=== PATIENT | male | born 1950 | race Caucasian/White ===

== ENCOUNTER 2018-04-18 18:07 | Inpatient (IN) | payer MEDICARE, OTHER ==
[2018-04-18] MEDS ORDERED: Lidocaine 1% w/Epinephrine 1:100K 20 ML VIAL ONE (19:09)
[2018-04-18] MEDS ORDERED: Lidocaine 1% PF 5 ML VIAL ONE (19:27)
[2018-04-18 19:57] LABS: #Basophils 0.1 thou/uL (0.0-0.2); #Eosinphils 0.1 thou/uL (0.0-0.7); #Lymphocytes 0.9 thou/uL (1.20-3.40); #Monocytes 0.7 thou/uL (0.11-0.59); #Neutrophils 5.6 thou/uL (1.40-6.50); %Basophils 0.7 % (0.0-1.0); %Eosinophils 1.6 % (0.0-10.0); %Lymphocytes 12.4 % (21.0-51.0); %Monocytes 8.9 % (0.0-10.0); %Neutrophils 76.5 % (42.0-75.0); Hemoglobin 12.7 g/dL (14.0-18.0); Mean Corpuscular HGB CONC 32.1 g/dL (32.0-36.0); Mean Corpuscular Hemoglobin 31.5 pg (27.0-31.0); Mean Corpuscular Volume 98.1 fL (78.0-98.0); Mean Platelet Volume 7.2 fL (7.4-10.4); Platelet Count 415 thou/uL (130-400); RBC Distribution Width 11.8 % (11.5-14.5); Red Blood Cell (RBC) Count 4.03 mill/uL (4.70-6.10); White Blood Cell (WBC) Count 7.4 thou/uL (4.8-10.8)
[2018-04-18 20:18] LABS: ALT (SGPT) 21 U/L (8-55); AST (SGOT) 31 U/L (5-34); Alkaline Phosphatase 83 U/L (40-150); Anion Gap 13 mmol/L (10-20); BUN (Urea Nitrogen) 13 mg/dL (8.4-25.7); Bilirubin, Total 0.8 mg/dL (0.2-1.2); CRP (Inflammatory) 6.71 mg/dL (= or < 0.5); Calc. Creatinine Clearance 0 mL/min (70-130); Calcium 9.1 mg/dL (7.8-10.44); Carbon Dioxide 27 mmol/L (23-31); Chloride 100 mmol/L (98-107); Estimated GFR-MDRD Greater than 90; Globulin 3.6 g/dL (2.4-3.5); Glucose 81 mg/dL (80-115); Protein, Total 6.6 g/dL (5.8-8.1); Sodium 136 mmol/L (136-145)
--- NOTE | 2018-04-18 20:20 | RAD ---
LEFT KNEE RADIOGRAPHS FOUR VIEWS 04/18/18 PROVIDED CLINICAL HISTORY: Left leg pain. FINDINGS: Postoperative changes of left total knee arthroplasty are demonstrated without evidence for hardware loosening or migration. There is increased density in the expected location of the knee joint that ma y reflect particle disease. Alignment appears anatomic. Joint spaces appear preserved. No lytic or bl astic lesions are seen. IMPRESSION: No evidence for an acute osseous abnormality. POS: JESSI
--- NOTE | 2018-04-18 21:08 | ULT ---
LEFT LOWER EXTREMITY VENOUS DOPPLER 04/18/18 PROVIDED CLINICAL HISTORY: Left leg pain. FINDINGS: Clarke scale and color doppler sonography with spectral analysis was performed of the left common femor al, femoral, popliteal, posterior tibial, greater saphenous, and profunda femoral veins. There is partial noncompressibility and luminal echogenicity involving the left femoral vein proxima lly. Flow is documented in this region. The remainder of the interrogated deep venous structures of t he left lower extremity appear normal. complex fluid collection at the left lateral lower leg inferio r to the knee is noted measuring at least 6.1 cm, incompletely characterized on the basis of this sunday dy, but possibly reflecting hematoma. IMPRESSION: Positive for nonocclusive thrombus within the left proximal femoral vein. POS: JESSI
[2018-04-18] MEDS ORDERED: Heparin 1,000 UNITS/ML VIAL ONE (23:51)
[2018-04-19] MEDS ORDERED: Heparin 5,000 UNITS/ML VIAL SC SCH ×2 (00:15→09:00)
[2018-04-19] MEDS ORDERED: Acetaminophen 325 MG TAB PO PRN (01:18)
[2018-04-19] MEDS ORDERED: Sodium Chloride 0.9% 1,000 ML IV SCH (02:00)
[2018-04-19] MEDS: Baclofen 10 MG TAB PO PRN (03:08)
--- NOTE | 2018-04-19 04:51 | HP ---
CHIEF COMPLAINT: Left knee pain. HISTORY OF PRESENT ILLNESS: This patient is a 67-year-old male, who had a total knee replacement on the left about [address] Wright. The patient has ALS and has some generalized weakness as a result of that. The patient was visiting [email or web address] and trying to get on a ride when his knee hyperflexed beyond what he has been able to flex it comfortably and had a popping sensation and pain in the knee. He has subsequently had some swelling and inflammation of the knee. They then drove back from [email or web address] yesterday, 16 straight hours. The patient was unable to really get out of the vehicle at all during that time, because of the pain in the knee and his overall weakness. He presented today primarily because he is concerned about injury to his prosthetic knee joint. The patient reports primary amount of pain is in the posterior portion of the knee and primarily in the distal segment of the joint posteriorly. He has not taken any [id number] medications at this point and his only relief is keeping the knee flexed at about a 45-degree angle in a certain position. REVIEW OF SYSTEMS: GENERAL: No fever, chills, changes in weight or sleep patterns. ENT: No hearing, vision, taste, or smell abnormalities. GI: Has some mild swallowing difficulties with ALS. No constipation or diarrhea. CV: No chest pain or palpitations. He does occasionally get some edema in his legs, but it is more dependent. PULMONARY: The patient has had a mild cough that is resolving. No shortness of breath or wheezing. : No dysuria or frequency. Does have nocturia frequently. No incontinence. SKIN: No skin lesions or rash. NEURO: The patient does have some generalized weakness. He also has some numbness and tingling in his feet, he relates to the ALS. PSYCH: Denies anxiety or depression. ENDOCRINE: Denies polyuria or polydipsia, but does have some dry mouth. All other systems reviewed and all pertinent positives and negatives noted in the history of present illness. PAST MEDICAL HISTORY: Notable for ALS. PAST SURGICAL HISTORY: Right hip surgery in the 1970s, had left knee arthroplasty. FAMILY HISTORY: Father of lung cancer. Mother has dementia. SOCIAL HISTORY: No tobacco, alcohol, or drugs. He is . He is full code and his would be his surrogate decision maker. ALLERGIES: HISTAMINE BLOCKERS. CURRENT MEDICATIONS: 1. Naltrexone, records indicate 3 mg once a day in the morning. 2. Amantadine 100 mg. 3. Sirolimus 1 mg. 4. Vitamin C 500 mg one p.o. b.i.d. 5. Baclofen 10 mg q.6 hours p.r.n. 6. Riluzole 50 mg one p.o. b.i.d. 7. Tamsulosin 0.4 mg p.o. daily. 8. Lutein-zeaxanthin 25-5, one p.o. daily. PHYSICAL EXAMINATION: VITAL SIGNS: BP 149/82, pulse 68, respirations 18, temperature is 98.9, and O2 saturation 94% on room air. GENERAL APPEARANCE: Age-appropriate male, in no distress. He is awake, alert, oriented, pleasant, and cooperative. He has some mild generalized muscle atrophy from the ALS. He is slow in his speech, but completely appropriate. HEENT: PERRL. No OP lesions. NECK: Supple and symmetric. HEART: Regular rate and rhythm. No murmurs, gallops, or rubs. LUNGS: Clear to auscultation bilaterally with good chest wall expansion and air exchange. ABDOMEN: Soft, nontender, and nondistended. Positive bowel sounds. No masses. No organomegaly. EXTREMITIES: The left knee has a well-healed surgical incisional scar. There is an effusion of the entire joint. There is some erythema on the prepatellar area and there is slight fullness with tenderness in the posterior proximal calf just below the knee joint. The entire area is slightly warm. LABORATORY DATA: White count 7.4, hemoglobin 12.7, platelets 415. D-dimer 1.15. Sodium 136, potassium 4.0, chloride 100, CO2 is 27, BUN 13, creatinine 0.64, glucose 81, calcium 9.1, AST 31, ALT is 21, CRP is 6.71, albumin 3.0. X-ray of the left knee shows no acute abnormalities. Lower extremity Doppler reveals nonocclusive thrombus within the left proximal femoral vein. IMPRESSION AND PLAN: 1. Deep venous thrombosis of the left proximal femoral vein. The patient unfortunately has this acute knee problem that is impacting the ability to simply start him on oral anticoagulation concerning that he could potentially have some bleeding into the knee joint. Given this particular trauma, we will go ahead and start him on heparin for now and ask the orthopedic surgeons to evaluate him to determine if any intervention will be indicated prior to committing him to longer term anticoagulation. 2. Left knee effusion. The patient appears to have caused some acute injury to that left knee causing some effusion and pain. We will get orthopedic surgery to evaluate the knee. 3. Amyotrophic lateral sclerosis, chronic, stable. Continue the patient on his usual home medications. Although they are not available to our pharmacy, we will need to allow him take his own medications. 4. Disposition. The patient does not have any interventions indicated for the knee and he is tolerating the heparin without any evidence of worsening of his knee situation can likely be converted to oral agents on discharge. Job ID: [id number]
[2018-04-19] MEDS: Tamsulosin HCl 0.4 MG CAP PO SCH (08:42)
[2018-04-19] MEDS ORDERED: Prevnar 13-Val Conj/PF 0.5 ML SYRINGE IM ONE (09:00)
[2018-04-19] MEDS ORDERED: Enoxaparin Sodium 80 MG/0.8 ML SYRINGE SC SCH (13:55)
--- NOTE | 2018-04-19 14:00 | PDOC.PN ---
- Subjective Encounter Start Date: 04/19/18 Encounter Start Time: 10:15 Subjective: pt up in bed no complains - Objective Resuscitation Status - Order Detail: 04/19/18 01:18 Resuscitation Status Routine Resuscitation Status: FULL: Full Resuscitation Discussed with: Patient Vital Signs & Weight: Vital Signs (12 hours) Temp Pulse Resp BP Pulse Ox 04/19/18 12:00 98.3 F 68 18 134/76 95 04/19/18 08:00 98.3 F 66 18 128/70 96 04/19/18 04:45 98.2 F 78 18 109/64 95 Weight Weight 154 lb 12.8 oz I&O: 04/18/18 04/19/18 04/20/18 06:59 06:59 06:59 Intake Total 630 Balance 630 Result Diagrams: 04/18/18 19:48 04/18/18 19:48 Phys Exam - Physical Examination Neck: no nodes, no JVD, supple, full ROM Respiratory: no wheezing, no rales, no rhonchi, wheezing present, clear to auscultation bilateral Cardiovascular: RRR, no significant murmur, no rub, gallop, irregular Gastrointestinal: soft, non-tender, no distention, positive bowel sounds Musculoskeletal: edema present left knee swelling Dx/Plan (1) DVT (deep venous thrombosis) Code(s): I82.409 - ACUTE EMBOLISM AND THOMBOS UNSP DEEP VN UNSP LOWER EXTREMITY Status: Acute (2) ALS (amyotrophic lateral sclerosis) Code(s): G12.21 - AMYOTROPHIC LATERAL SCLEROSIS Status: Acute - Plan will start pt on eliquis -: ortho tried to aspirate left knee not much fluid -: will continue his home meds * . Review of Systems - Review of Systems Respiratory: negative: Cough, Dry, Shortness of Breath, Hemoptysis, SOB with Excertion, Pleuritic Pain, Sputum, Wheezing Cardiovascular: negative: chest pain, palpitations, orthopnea, paroxysmal nocturnal dyspnea, edema, light headedness, other Gastrointestinal: negative: Nausea, Vomiting, Abdominal Pain, Diarrhea, Constipation, Melena, Hematochezia, Other Genitourinary: negative: Dysuria, Frequency, Incontinence, Hematuria, Retention , Other - Medications/Allergies Allergies/Adverse Reactions: Allergies Allergy/AdvReac Type Severity Reaction Status Date / Time Histamine H2 Inhibitors Allergy Verified 04/19/18 00:04 Medications: Current Medications Acetaminophen (Tylenol) 650 mg PO Q4H PRN PRN Reason: Headache/Fever/Mild Pain (1-3) Amantadine HCl (Symmetrel) 100 mg PO BID [facility] Baclofen (Lioresal) 10 mg PO Q6H PRN PRN Reason: Muscle Spasm Last Admin: 04/19/18 03:08 Dose: 10 mg Baclofen (Lioresal) 5 mg PO TID [facility] Duloxetine HCl (Cymbalta) 30 mg PO DAILY [facility] Enoxaparin Sodium (Lovenox) 0 mg SC 09,2099 [facility] Finasteride (Proscar) 5 mg PO DAILY [facility] Non-Formulary Medication (Lutein/Zeaxanthin [Lutein-Zeaxanthin 25-5 Mg Sfgl]) 1 tab PO DAILY [facility] Non-Formulary Medication (Naltrexone Hcl [Naltrexone Hcl]) 3 mg PO DAILY [facility] Non-Formulary Medication (Riluzole [Rilutek]) 50 mg PO BID [facility] Sirolimus (Rapamune) 1 mg PO DAILY [facility] Sodium Chloride (Flush - Normal Saline) 10 ml IVF Q12HR [facility] Last Admin: 04/19/18 08:42 Dose: Not Given Sodium Chloride (Flush - Normal Saline) 10 ml IVF PRN PRN PRN Reason: Saline Flush Tamsulosin HCl (Flomax) 0.4 mg PO DAILY [facility] Last Admin: 04/19/18 08:42 Dose: 0.4 mg Tamsulosin HCl (Flomax) 0.4 mg PO DAILY [facility] Valacyclovir HCl (Valtrex) gm PO DAILY [facility]
[2018-04-19] MEDS: Baclofen 10 MG TAB PO SCH ×2 (15:26→20:29)
[2018-04-19] MEDS ORDERED: Apixaban 5 MG TAB PO SCH ×2 (15:30→21:00)
[2018-04-19] MEDS ORDERED: NALTREXONE HCL PO SCH (15:45)
[2018-04-19] MEDS: Amantadine HCl 100 mg Capsule PO SCH (20:29)
[2018-04-19] MEDS: Riluzole [Rilutek] 50 MG PO SCH (20:30)
--- NOTE | 2018-04-20 03:33 | CON ---
DATE OF CONSULTATION: 04/19/2018 HISTORY OF PRESENT ILLNESS: Mr. Solano is a 67-year-old male, who is well known to me. Ten years ago, the patient underwent a total knee arthroplasty on his left knee by Dr. Carl Thompson. The patient since that time has been diagnosed with ALS, has generalized weakness throughout. The family says he is transfers only. He only makes 1 to 2 feet a day. He is currently wheelchair bound. The patient was visiting [place], hyperflexed his knee, had a pop and acute pain. He drove about 16 straight hours back, was seen in Urgent Care and noted to have a DVT. The patient's pain is located in posterolateral knee. He is currently in a flexed position of 45 degrees, which is decreased from last time. PAST MEDICAL HISTORY: Includes hyperlipidemia, ALS. PAST SURGICAL HISTORY: Includes hip surgery that he specifies and a previous total knee arthroplasty. ALLERGIES: HISTAMINE. SOCIAL HISTORY: Nonsmoker, nondrinker, not alcoholic. The patient is retired from [employer] MEDICATIONS: Please see admission list. 1. Naltrexone. 2. Amantadine. 3. Sirolimus. 4. Vitamin C. 5. Baclofen. 6. Riluzole. 7. Tamsulosin. 8. Lutein-zeaxanthin. PHYSICAL EXAMINATION: VITAL SIGNS: The patient is currently afebrile. Vital signs stable. GENERAL: He is an alert male, in no acute distress. Dysarthria, difficulty with speaking. EXTREMITIES: Bilateral upper extremities show weakness with elevation. The patient's left lower extremity shows flexion deformity at 45 degrees with ecchymosis, well-healed surgical scar. The patient has tenderness in his posterior popliteal fossa. He has palpable pulses. He has sensation intact, but weak dorsiflexion, plantar flexion, eversion, and inversion. DIAGNOSTIC DATA: The patient had radiograph performed of his left knee, which showed no acute fracture. The patient did have an ultrasound positive for DVT. IMPRESSION: 1. Left total knee arthroplasty, arthrofibrosis, increased pain. 2. Amyotrophic lateral sclerosis. 3. Limited ambulator. 4. Deep venous thrombosis. ASSESSMENT AND PLAN: Mr. Solano is a 67-year-old male. With his recurrent continued left knee pain, my concern is that the patient does not have something right now that can imminently cause further harm. He is currently immobilized, ambulating only in a wheelchair. I do not feel that the patient's knee is infected. I aspirated the knee with only taking about 0.5 mL of fluid. The patient had this pop, which was probably soft tissue injury. He has stiff arthrofibrosis of his knee secondary to pain as well as weakness. I discussed with the patient that given his current medical condition of ALS, I was concerned about intubating him for concern of being unable to extubate him and leading ultimately to his . I discussed with the patient that the patient's total knee does not show any signs of fractures. He will need to be treated for his DVT. I aspirated the knee. We will follow up with the cultures. If the patient does not need to be admitted to the hospital, he can be discharged home. I will follow up with the patient in about 2 weeks to check on to see how he is doing. The patient's outlook is poor. Job ID: [id number]
--- NOTE | 2018-04-20 04:41 | OP ---
DATE OF PROCEDURE: 04/19/2018 PREOPERATIVE DIAGNOSIS: Painful left total knee arthroplasty. POSTOPERATIVE DIAGNOSIS: Left painful total knee arthroplasty. PROCEDURE PERFORMED: Aspiration and injection, left knee. 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 Attempted aspiration with needle to look for potential hematoma, hemarthrosis within the knee joint versus potential infection. I discussed with the patient risks and benefits of the procedure, pain, scar, bleeding, infection, need for further surgeries. I was attempting to see if an organism could be isolated, could be treated, although I do not think the patient is a good operative candidate for risk of unless he is in sepsis that could imminently shorten his life. The patient understood the risks and benefits of the procedure, pain, scar, bleeding, infection, need for potential surgery. He understood risks and benefits of surgery and would like to proceed. A time-out was performed. The patient's leg was cleaned with Betadine and chlorhexidine. I injected using an 18-gauge needle, directed it under the patella from superolaterally, hit down off the metal. I was only able to aspirate about 1 mL of fluid and unable to get any other fluid from the knee. With adjusting the direction of my needle, I then sent that off and a culture swab for cultures for followup. I do not feel that the patient's knee is likely infected. Given the patient's limited ambulation and concern for intubation, I would likely continue to treat him conservatively. The patient's cultures will be followed up in outpatient. Job ID: [id number]
[2018-04-20] MEDS: Baclofen 10 MG TAB PO PRN (04:42)
[2018-04-20] MEDS: NALTREXONE HCL PO SCH (08:56)
[2018-04-20] MEDS: Apixaban 5 MG TAB PO SCH ×2 (08:56→20:45)
[2018-04-20] MEDS: DULoxetine 30 MG CAP PO SCH (08:56)
[2018-04-20] MEDS: Vit A,C & E/Lutein/Minerals Tablet PO SCH (08:56)
[2018-04-20] MEDS: Tamsulosin HCl 0.4 MG CAP PO SCH (08:57)
[2018-04-20] MEDS: Amantadine HCl 100 mg Capsule PO SCH ×2 (08:57→20:46)
[2018-04-20] MEDS: Finasteride 5 MG TAB PO SCH (08:57)
[2018-04-20] MEDS: Baclofen 10 MG TAB PO SCH ×3 (08:57→20:45)
[2018-04-20] MEDS: Riluzole [Rilutek] 50 MG PO SCH ×2 (08:58→20:48)
[2018-04-20] MEDS ORDERED: valACYclovir HCl 1 GM TAB PO SCH (09:00)
[2018-04-20] MEDS ORDERED: Tamsulosin HCl 0.4 MG CAP PO SCH (09:00)
[2018-04-20] MEDS: valACYclovir 500 MG TAB PO SCH (09:20)
[2018-04-20] MEDS: Piperacillin/Tazobactam 3.375 GM in Sodium Chloride 0.9% 100 ML IVPB SCH ×2 (11:48→17:24)
--- NOTE | 2018-04-20 19:37 | PDOC.PN ---
- Subjective Encounter Start Date: 04/20/18 Encounter Start Time: 12:30 Subjective: pt up in bed no complains - Objective Resuscitation Status - Order Detail: 04/19/18 01:18 Resuscitation Status Routine Resuscitation Status: FULL: Full Resuscitation Discussed with: Patient Vital Signs & Weight: Vital Signs (12 hours) Temp Pulse Resp BP Pulse Ox 04/20/18 10:50 98.3 F 75 18 145/80 H 93 L Weight Weight 154 lb 12.8 oz I&O: 04/19/18 04/20/18 04/21/18 06:59 06:59 06:59 Intake Total 630 450 Output Total 850 Balance 630 -400 Result Diagrams: 04/18/18 19:48 04/18/18 19:48 Phys Exam - Physical Examination Neck: no nodes, no JVD, supple, full ROM Respiratory: no wheezing, no rales, no rhonchi, wheezing present, clear to auscultation bilateral Cardiovascular: RRR, no significant murmur, no rub, gallop, irregular Gastrointestinal: soft, non-tender, no distention, positive bowel sounds Musculoskeletal: edema present left knee erythema and edema has slurred speech at baseline Dx/Plan (1) DVT (deep venous thrombosis) Code(s): I82.409 - ACUTE EMBOLISM AND THOMBOS UNSP DEEP VN UNSP LOWER EXTREMITY Status: Acute (2) ALS (amyotrophic lateral sclerosis) Code(s): G12.21 - AMYOTROPHIC LATERAL SCLEROSIS Status: Acute (3) Left knee pain Code(s): M25.562 - PAIN IN LEFT KNEE Status: Acute - Plan aspiration of left knee indicates gram neg shruthi -: will start him on zosyn for now -: on eliquis for dvt -: continue meds for ALS * . Review of Systems - Review of Systems Cardiovascular: negative: chest pain, palpitations, orthopnea, paroxysmal nocturnal dyspnea, edema, light headedness, other Gastrointestinal: negative: Nausea, Vomiting, Abdominal Pain, Diarrhea, Constipation, Melena, Hematochezia, Other Genitourinary: negative: Dysuria, Frequency, Incontinence, Hematuria, Retention , Other - Medications/Allergies Allergies/Adverse Reactions: Allergies Allergy/AdvReac Type Severity Reaction Status Date / Time Histamine H2 Inhibitors Allergy Verified 04/19/18 00:04 Medications: Current Medications Acetaminophen (Tylenol) 650 mg PO Q4H PRN PRN Reason: Headache/Fever/Mild Pain (1-3) Amantadine HCl (Symmetrel) 100 mg PO BID [facility] Last Admin: 04/20/18 08:57 Dose: 100 mg Apixaban (Eliquis) 10 mg PO BID [facility] Last Admin: 04/20/18 08:56 Dose: 10 mg Baclofen (Lioresal) 10 mg PO Q6H PRN PRN Reason: Muscle Spasm Last Admin: 04/20/18 04:42 Dose: 10 mg Baclofen (Lioresal) 5 mg PO TID [facility] Last Admin: 04/20/18 15:31 Dose: 5 mg Duloxetine HCl (Cymbalta) 30 mg PO DAILY [facility] Last Admin: 04/20/18 08:56 Dose: 30 mg Finasteride (Proscar) 5 mg PO DAILY [facility] Last Admin: 04/20/18 08:57 Dose: 5 mg Piperacillin Sod/Tazobactam (Sod 3.375 gm/ Sodium Chloride) 100 mls @ 200 mls/ hr IVPB Q6HR [facility] Last Admin: 04/20/18 17:24 Dose: 100 mls Multivitamins/Minerals (Ocuvite With Lutein) 1 tab PO DAILY [facility] Last Admin: 04/20/18 08:56 Dose: 1 tab Naltrexone Hcl [ Naltrexone Hcl] 3 Mg Capsule Compounded 0 each PO DAILY [facility] Last Admin: 04/20/18 08:56 Dose: 1 each Riluzole [Rilutek] (50 Mg) 0 each PO BID [facility] Last Admin: 04/20/18 08:58 Dose: 1 each Sirolimus (Rapamune) 1 mg PO DAILY [facility] Last Admin: 04/20/18 09:20 Dose: 1 mg Sodium Chloride (Flush - Normal Saline) 10 ml IVF Q12HR [facility] Last Admin: 04/20/18 08:58 Dose: 10 ml Sodium Chloride (Flush - Normal Saline) 10 ml IVF PRN PRN PRN Reason: Saline Flush Tamsulosin HCl (Flomax) 0.4 mg PO DAILY [facility] Last Admin: 04/20/18 08:57 Dose: 0.4 mg Valacyclovir HCl (Valtrex) 1,000 mg PO DAILY [facility] Last Admin: 04/20/18 09:20 Dose: 1,000 mg
[2018-04-21] MEDS: Piperacillin/Tazobactam 3.375 GM in Sodium Chloride 0.9% 100 ML IVPB SCH ×5 (00:01→23:06)
--- NOTE | 2018-04-21 06:21 | CON ---
DATE OF CONSULTATION: 04/20/2018 HISTORY OF PRESENT ILLNESS: Mr. Solano is a 67-year-old male with left total knee arthroplasty placed 10 years ago, acute increase in pain, currently with DVT. The patient has ALS. He is currently resting in bed. I informed the patient's house. OBJECTIVE: VITAL SIGNS: 98.3, 75, 18, 93%, and 145/80. GENERAL: Alert and oriented male in no acute distress. EXTREMITIES: Left knee with positive swelling anteriorly and has a 40-degree flexion contracture. LABORATORY DATA: Microbiology from my aspiration yesterday showed gram-negative rods. IMPRESSION: Painful left total knee, concern for possible septic joint. ASSESSMENT AND PLAN: I discussed the case with Dr. Fernandez. We will consult Dr. Fernandez for any potential medical management. I also called and spoke with Dr. Raines for concern for possible intubation, risk of extubation, and I discussed that the patient potentially need to be trach'd and may never be extubated. I discussed with the patient that we would likely prefer to have antibiotic management for any potential infection for chronic suppression. He understands this. We will await speciation tomorrow and see if it is a contaminant. Job ID: [id number] [id number]
[2018-04-21] MEDS: Riluzole [Rilutek] 50 MG PO SCH ×2 (08:46→20:59)
[2018-04-21] MEDS: NALTREXONE HCL PO SCH (08:46)
[2018-04-21] MEDS: Apixaban 5 MG TAB PO SCH ×2 (08:47→20:58)
[2018-04-21] MEDS: DULoxetine 30 MG CAP PO SCH (08:47)
[2018-04-21] MEDS: Tamsulosin HCl 0.4 MG CAP PO SCH (08:47)
[2018-04-21] MEDS: Amantadine HCl 100 mg Capsule PO SCH ×2 (08:47→20:58)
[2018-04-21] MEDS: Finasteride 5 MG TAB PO SCH (08:47)
[2018-04-21] MEDS: valACYclovir 500 MG TAB PO SCH (08:47)
[2018-04-21] MEDS: Vit A,C & E/Lutein/Minerals Tablet PO SCH (08:47)
[2018-04-21] MEDS: Baclofen 10 MG TAB PO SCH ×3 (08:48→20:59)
--- NOTE | 2018-04-21 13:01 | PDOC.PN ---
- Subjective Encounter Start Date: 04/21/18 Encounter Start Time: 08:20 Subjective: knee pain is better, no sob -: at bedside - Objective Resuscitation Status - Order Detail: 04/19/18 01:18 Resuscitation Status Routine Resuscitation Status: FULL: Full Resuscitation Discussed with: Patient JOURDAN Reviewed: Yes Vital Signs & Weight: Vital Signs (12 hours) Temp Pulse Resp BP BP Pulse Ox 04/21/18 11:48 98.1 F 80 18 95/56 L 94 L 04/21/18 08:00 95 04/21/18 07:55 98.1 F 63 18 116/74 95 04/21/18 05:24 98.3 F 67 20 124/72 94 L Weight Weight 154 lb 12.8 oz I&O: 04/20/18 04/21/18 04/22/18 06:59 06:59 06:59 Intake Total 450 680 120 Output Total 850 350 Balance -400 330 120 Result Diagrams: 04/18/18 19:48 04/18/18 19:48 Phys Exam - Physical Examination HEENT: PERRLA, moist MMs Neck: no JVD, supple Respiratory: no wheezing, no rales Cardiovascular: RRR, no significant murmur Gastrointestinal: soft, non-tender, positive bowel sounds Musculoskeletal: pulses present left knee has effusion, a bit warm to touch Neurological: moves all 4 limbs Psychiatric: normal affect, A&O x 3 Dx/Plan (1) Septic arthritis Status: Acute Qualifiers: Septic arthritis location: knee Septic arthritis organism: due to unspecified organism Laterality: left Qualified Code(s): M00.9 - Pyogenic arthritis, unspecified (2) ALS (amyotrophic lateral sclerosis) Code(s): G12.21 - AMYOTROPHIC LATERAL SCLEROSIS Status: Chronic (3) DVT (deep venous thrombosis) Code(s): I82.409 - ACUTE EMBOLISM AND THOMBOS UNSP DEEP VN UNSP LOWER EXTREMITY Status: Acute Qualifiers: DVT location: lower extremity Affected thrombotic vein of extremity: femoral Chronicity: acute Laterality: left Qualified Code(s): I82.412 - Acute embolism and thrombosis of left femoral vein - Plan is on vanc and zosyn for septic arthritis -: knee asp growing gr -ve rare rods -: on eliquis for dvt -: PT to mobilize as tolerated -: continue home meds sirolimus, baclofen, flomax and proscar * . Review of Systems - Medications/Allergies Allergies/Adverse Reactions: Allergies Allergy/AdvReac Type Severity Reaction Status Date / Time Histamine H2 Inhibitors Allergy Verified 04/19/18 00:04 Medications: Current Medications Acetaminophen (Tylenol) 650 mg PO Q4H PRN PRN Reason: Headache/Fever/Mild Pain (1-3) Amantadine HCl (Symmetrel) 100 mg PO BID [facility] Last Admin: 04/21/18 08:47 Dose: 100 mg Apixaban (Eliquis) 10 mg PO BID [facility] Last Admin: 04/21/18 08:47 Dose: 10 mg Baclofen (Lioresal) 10 mg PO Q6H PRN PRN Reason: Muscle Spasm Last Admin: 04/20/18 04:42 Dose: 10 mg Baclofen (Lioresal) 5 mg PO TID [facility] Last Admin: 04/21/18 08:48 Dose: 5 mg Duloxetine HCl (Cymbalta) 30 mg PO DAILY [facility] Last Admin: 04/21/18 08:47 Dose: 30 mg Finasteride (Proscar) 5 mg PO DAILY [facility] Last Admin: 04/21/18 08:47 Dose: 5 mg Piperacillin Sod/Tazobactam (Sod 3.375 gm/ Sodium Chloride) 100 mls @ 200 mls/ hr IVPB Q6HR [facility] Last Admin: 04/21/18 12:12 Dose: 100 mls Multivitamins/Minerals (Ocuvite With Lutein) 1 tab PO DAILY [facility] Last Admin: 04/21/18 08:47 Dose: 1 tab Naltrexone Hcl [ Naltrexone Hcl] 3 Mg Capsule Compounded 0 each PO DAILY [facility] Last Admin: 04/21/18 08:46 Dose: 1 each Riluzole [Rilutek] (50 Mg) 0 each PO BID [facility] Last Admin: 04/21/18 08:46 Dose: 1 each Sirolimus (Rapamune) 1 mg PO DAILY [facility] Last Admin: 04/21/18 08:47 Dose: 1 mg Sodium Chloride (Flush - Normal Saline) 10 ml IVF Q12HR [facility] Last Admin: 04/21/18 08:48 Dose: 10 ml Sodium Chloride (Flush - Normal Saline) 10 ml IVF PRN PRN PRN Reason: Saline Flush Tamsulosin HCl (Flomax) 0.4 mg PO DAILY [facility] Last Admin: 04/21/18 08:47 Dose: 0.4 mg Valacyclovir HCl (Valtrex) 1,000 mg PO DAILY [facility] Last Admin: 04/21/18 08:47 Dose: 1,000 mg
[2018-04-22] MEDS: Piperacillin/Tazobactam 3.375 GM in Sodium Chloride 0.9% 100 ML IVPB SCH ×2 (05:57→11:56)
[2018-04-22 08:05] VITALS: BP 125/75; TEMP 98.1
[2018-04-22] MEDS: Riluzole [Rilutek] 50 MG PO SCH (09:16)
[2018-04-22] MEDS: NALTREXONE HCL PO SCH (09:17)
[2018-04-22] MEDS: Baclofen 10 MG TAB PO SCH ×2 (09:19→14:31)
[2018-04-22] MEDS: Tamsulosin HCl 0.4 MG CAP PO SCH (09:19)
[2018-04-22] MEDS: Apixaban 5 MG TAB PO SCH (09:22)
[2018-04-22] MEDS: Amantadine HCl 100 mg Capsule PO SCH (09:22)
[2018-04-22] MEDS: Finasteride 5 MG TAB PO SCH (09:23)
[2018-04-22] MEDS: DULoxetine 30 MG CAP PO SCH (09:23)
[2018-04-22] MEDS: Vit A,C & E/Lutein/Minerals Tablet PO SCH (09:23)
[2018-04-22] MEDS: valACYclovir 500 MG TAB PO SCH (10:18)
--- NOTE | 2018-04-22 11:14 | CON ---
DATE OF CONSULTATION: REASON FOR CONSULTATION: Left knee inflammatory changes, pain, and positive cultures from arthrocentesis. HISTORY OF PRESENT ILLNESS: A 67-year-old who has a diagnosis of amyotrophic lateral sclerosis and had a left TKR about 10 years before. The patient has noticed reasonably worsened pain in the left knee for the past 12 months, which has exacerbated over the past few weeks. It seems to coincide with the recent visit to [facility] in [place], but it is obvious that this problem has been present for a much longer period than that and nonetheless, he is back here in the hospital , joint aspirated contained a small amount of serosanguineous fluid, which was submitted to micro-evaluation and we have a gram-negative rods. The patient has quite a bit of pain in the left knee when there is mobilization of the knee. For example, during one of his leg spasms. He has not had any fever or chills. No headaches. There is a lot of difficulty with speech because of his weakness. He has no chest pain. No abdominal pain. No diarrhea. He is voiding spontaneously. PAST MEDICAL HISTORY: Includes amyotrophic lateral sclerosis. PAST SURGICAL HISTORY: Includes left hip surgery. FAMILY HISTORY: Cancer and dementia. SOCIAL HISTORY: Never smoker. . ALLERGIES: ANTIHISTAMINES. MEDICATIONS: 1. Naltrexone. 2. Amantadine. 3. Sirolimus. 4. Vitamin C. 5. Baclofen. 6. Riluzole. 7. Tamsulosin. PHYSICAL EXAMINATION: VITAL SIGNS: Demonstrated normal temperature through the hospital stay, BP 130/ 70, pulse 68, respirations 18, O2 saturation 95%. SKIN: Without any areas of skin breakdown. The patient has a peripheral IV access. He is urinating in the urinal. There is no lymphadenopathy. HEENT: Ocular movements are conjugate. Oral cavity is normal. NECK: Supple. LUNGS: Symmetric. Clear breath sounds. HERAT: S1 and S2. Regular rate. ABDOMEN: Soft, not distended or tender. No ascites. No bladder distention. EXTREMITIES: Left knee has limitation of range of motion because of pain. There is moderate swelling and tenderness on palpation. Mild erythema. Pulses are 1+ in dorsalis pedis. He has extensor response upon stimulation at the plantar aspect of the feet. NEUROLOGIC: He is awake, oriented, follows commands, quite significant dysarthria and weakness of the cranial nerves in the associated musculature. LABORATORY DATA: White cell count 7.4, hemoglobin 12, platelets 415, 76% neutrophils. Chemistry with creatinine 0.64. Normal lipid profile. CRP 6.71, albumin 3.0. The organism is still to be identified. ASSESSMENT: Amyotrophic lateral scoliosis and inflammatory changes associated with pain with limitation of range of motion with the left total knee replacement site now with positive cultures from the aspirate. DISCUSSION: In view of the limitations in terms of management options, specifically the high risk for any surgical intervention due to the respiratory insufficiency , we will advise empiric treatment for now and then eventually when the identification and susceptibility profile of the organisms becomes available, then discharge planning either with a PICC line or hopefully oral antimicrobial administration for protracted period of time. After that, then he would probably have to be on suppressive therapy for few months. In view of his underlying diagnosis, his life expectancy probably not longer than 1 year. Job ID: [id number] MTDD
--- NOTE | 2018-04-22 13:00 | PDOC.PN ---
- Subjective Encounter Start Date: 04/22/18 Encounter Start Time: 08:00 Subjective: no pain in his knees or fever -: feels better - Objective Resuscitation Status - Order Detail: 04/19/18 01:18 Resuscitation Status Routine Resuscitation Status: FULL: Full Resuscitation Discussed with: Patient JOURDAN Reviewed: Yes Vital Signs & Weight: Vital Signs (12 hours) Temp Pulse Resp BP Pulse Ox 04/22/18 08:04 98.1 F 62 18 125/75 95 04/22/18 08:00 95 04/22/18 04:00 98.0 F Weight Weight 154 lb 12.8 oz I&O: 04/21/18 04/22/18 04/23/18 06:59 06:59 06:59 Intake Total 680 1120 Output Total 350 350 Balance 330 770 Result Diagrams: 04/18/18 19:48 04/18/18 19:48 Phys Exam - Physical Examination HEENT: PERRLA, moist MMs Neck: no JVD, supple Respiratory: no wheezing, no rales Cardiovascular: RRR, no significant murmur Gastrointestinal: soft, non-tender, positive bowel sounds Musculoskeletal: pulses present left knee effusion++ Neurological: non-focal, moves all 4 limbs Psychiatric: normal affect, A&O x 3 Dx/Plan (1) Septic arthritis Status: Acute Qualifiers: Septic arthritis location: knee Septic arthritis organism: due to unspecified organism Laterality: left Qualified Code(s): M00.9 - Pyogenic arthritis, unspecified (2) ALS (amyotrophic lateral sclerosis) Code(s): G12.21 - AMYOTROPHIC LATERAL SCLEROSIS Status: Chronic (3) DVT (deep venous thrombosis) Code(s): I82.409 - ACUTE EMBOLISM AND THOMBOS UNSP DEEP VN UNSP LOWER EXTREMITY Status: Acute Qualifiers: DVT location: lower extremity Affected thrombotic vein of extremity: femoral Chronicity: acute Laterality: left Qualified Code(s): I82.412 - Acute embolism and thrombosis of left femoral vein - Plan discussed extensively with pt and at bedside reg cipro and eliquis -: pt info reg both will be given -: d/w emmanuel Wood for 4 months then lower dose indefinitely after -: d/w at bedside -: dc pt home * .
== END 2018-04-22 14:56 | disposition home or self-care (01) | DRG 300 ==
LOC: ERS 18:07 → T4-A 04-19 01:18 → OBSVTOIN 04-20 18:07
PROVIDERS: ADMIT Internal Medicine; ATTEND Internal Medicine
PROC: 0S9D3ZX Drainage of Left Knee Joint, Percutaneous Approach, Diagnostic (ICD-10-PCS; principal; 2018-04-19)
DX: I82.412 Acute embolism and thrombosis of left femoral vein (principal); T84.54XA Infection and inflammatory reaction due to internal left knee prosthesis, initial encounter; G12.21 Amyotrophic lateral sclerosis; M00.9 Pyogenic arthritis, unspecified; M25.462 Effusion, left knee; Z80.1 Family history of malignant neoplasm of trachea, bronchus and lung
CPT/HCPCS: 36415; 80053; 85025; 85379; 85652; 85730; 86140; 87070; 87077; 87186; 87205; 90471; 90670; 96372; G0009; J1644; J2001; J2543; J7050; J7520

== ENCOUNTER 2018-05-21 10:52 | Outpatient (CLI) | payer MEDICARE, OTHER ==
--- NOTE | 2018-05-21 12:58 | ULT ---
LEFT LOWER EXTREMITY VENOUS DOPPLER: History: Left calf and posterior popliteal fossa pain. Comparison: 04-18-18 Technique: Grayscale, color flow, doppler imaging and spectral waveform analysis performed of the [facility] lower extremity system. FINDINGS: There is compressibility, presence of flow, and augmentation of the common femoral vein, femoral vein , and popliteal vein. There is flow in the greater saphenous vein, profunda vein, and posterior tibia l vein. In the popliteal fossa and calf region, there is a mixed echotexture focus which may represent a foca l resolving hematoma or edema. An infected fluid collection cannot be completely excluded. This colle ction measures 5.2 x 1.3 cm in the sagittal plane and was originally identified in March 2018 and has slightly decreased in size. IMPRESSION: 1. No evidence of thrombus in the left lower extremity deep venous system. 2. Complex echotexture in the popliteal fossa/calf region which may represent a resolving hematoma. T he possibility of an infected fluid collection cannot be completely excluded. Continued surveillance is recommended. POS: [facility]
== END 2018-05-21 10:53 | disposition home or self-care (01) ==
LOC: ULT 10:52
PROVIDERS: ATTEND Orthopaedic Surgery
DX: I82.432 Acute embolism and thrombosis of left popliteal vein (principal); M79.662 Pain in left lower leg; R94.39 Abnormal result of other cardiovascular function study

== ENCOUNTER 2018-05-22 12:09 | Inpatient (IN) | payer MEDICARE, OTHER ==
[2018-05-22 12:34] LABS: #Eosinphils 0.1 thou/uL (0.0-0.7); #Lymphocytes 0.9 thou/uL (1.20-3.40); #Monocytes 0.6 thou/uL (0.11-0.59); #Neutrophils 5.4 thou/uL (1.40-6.50); %Basophils 0.3 % (0.0-1.0); %Eosinophils 1.7 % (0.0-10.0); %Monocytes 7.9 % (0.0-10.0); %Neutrophils 77.1 % (42.0-75.0); Hemoglobin 12.9 g/dL (14.0-18.0); Mean Corpuscular HGB CONC 30.9 g/dL (32.0-36.0); Mean Corpuscular Hemoglobin 30.2 pg (27.0-31.0); Platelet Count 478 thou/uL (130-400); RBC Distribution Width 12.4 % (11.5-14.5); Red Blood Cell (RBC) Count 4.26 mill/uL (4.70-6.10); White Blood Cell (WBC) Count 7.1 thou/uL (4.8-10.8)
[2018-05-22 12:42] LABS: Prothrombin Time 13.2 SEC (12.0-14.7)
[2018-05-22 12:43] LABS: PTT 41.2 SEC (22.9-36.1)
--- NOTE | 2018-05-22 15:53 | CT ---
CT GUIDED LEFT LOWER EXTREMITY ABSCESS DRAINAGE: 05/22/18 Patient with history of soft tissue swelling and erythema. Concern for abscess. Informed consent was obtained from the patient. The left calf was prepped and draped in the usual [place] ri[place] manner. A 1% lidocaine solution was used to anesthetize overlying soft tissues. A small dermatot stefanie was made. A 5 Irish Yueh needle was placed into the fluid collection. Purulent material was evac uated out of the Yueh needle. An 0.035 short Amplatz wire was introduced. The tract was dilated to 6 Irish and a 6 Irish all purpose drainage catheter was placed into the fluid collection. The cavity collapsed around the pigtail catheter. The pigtail catheter was formed within the cavity. IMPRESSION: Successful CT guided left calf abscess drainage. POS: JESSI
[2018-05-22] MEDS ORDERED: Heparin 1,000 UNITS/ML VIAL ONE ×2 (16:14→19:47)
[2018-05-22 16:18] LABS: BF Color Yellow; Clarity Cloudy/Turbid (Clear); RBC Count-Automated 41700 /cumm; Tube # EDTA; WBC/NonHematic-Auto 36200 /cumm
[2018-05-22 16:37] VITALS: BMI 20.3
[2018-05-22 16:52] LABS: BF Segmented Neutrophils 98 %; Cell Count Non Hematic 2 %
--- NOTE | 2018-05-22 18:26 | SPC ---
RIGHT UPPER EXTREMITY PICC LINE PLACEMENT WITH ULTRASOUND GUIDANCE. 05/22/18 HISTORY: Right calf infection. COMPARISON: None. EXPOSURE: 0.7 minutes, 2017 mGy*cm2. FINDINGS: Successful right upper extremity PICC line placement with ultrasound guidance. Single lumen 5 German catheter does aspirate. Trim length is 37 cm and the distal tip is in the superior vena cava. TECHNIQUE: Consent obtained to perform a right upper extremity PICC line with ultrasound guidance. Right arm was prepped and draped in the sterile fashion. 1% lidocaine, buffered with sodium bicarbonate was used f or local anesthesia. A basilic vein could not be adequately visualized. Therefore, the brachial vein was deemed appropriate. Under sonographic guidance, a micropuncture needle was used to access the bra chial vein. A 0.018 guide wire was advanced under fluoroscopy to the level of the superior vena cava. Wire was further advanced into the inferior vena cava to document venous access. The wire was subseq uently pulled back to the superior vena cava. Tract was dilated. Single lumen 5 German catheter was p assed over the wire. Trim length is 37 cm. Single lumen catheter flushes and aspirates without diffic ulty. IMPRESSION: Successful right upper extremity PICC line placement with ultrasound guidance. POS: [facility]
[2018-05-22 18:49] LABS: #Eosinphils 0.1 thou/uL (0.0-0.7); #Lymphocytes 0.8 thou/uL (1.20-3.40); #Monocytes 0.6 thou/uL (0.11-0.59); #Neutrophils 6.1 thou/uL (1.40-6.50); %Basophils 0.5 % (0.0-1.0); %Eosinophils 1.6 % (0.0-10.0); %Lymphocytes 10.9 % (21.0-51.0); %Monocytes 7.7 % (0.0-10.0); %Neutrophils 79.3 % (42.0-75.0); Hemoglobin 12.4 g/dL (14.0-18.0); Mean Corpuscular HGB CONC 31.1 g/dL (32.0-36.0); Mean Corpuscular Hemoglobin 30.4 pg (27.0-31.0); Mean Corpuscular Volume 97.7 fL (78.0-98.0); Mean Platelet Volume 7.2 fL (7.4-10.4); Platelet Count 457 thou/uL (130-400); RBC Distribution Width 12.3 % (11.5-14.5); Red Blood Cell (RBC) Count 4.09 mill/uL (4.70-6.10); White Blood Cell (WBC) Count 7.7 thou/uL (4.8-10.8)
[2018-05-22] MEDS ORDERED: traMADol HCl 50 MG TAB PO PRN (19:08)
[2018-05-22] MEDS: Vancomycin HCl 1.5 GM in Sodium Chloride 0.9% 250 ML 300 ML IVPB SCH (20:08)
[2018-05-22] MEDS: Amantadine HCl 100 mg Capsule PO SCH (20:09)
[2018-05-22] MEDS: Baclofen 10 MG TAB PO SCH (20:09)
[2018-05-22] MEDS ORDERED: Apixaban 5 MG TAB PO SCH (21:00)
[2018-05-22] MEDS: Apixaban 5 MG TAB PO SCH (21:00)
[2018-05-22] MEDS: RILUZOLE 50 MG PO SCH (22:30)
[2018-05-23] MEDS: Amantadine HCl 100 mg Capsule PO SCH ×2 (09:24→20:07)
[2018-05-23] MEDS: ZEAXANTHIN PO SCH (09:25)
[2018-05-23] MEDS: Baclofen 10 MG TAB PO SCH ×3 (09:25→20:06)
[2018-05-23] MEDS: LUTEIN PO SCH (09:25)
[2018-05-23] MEDS: Ascorbic Acid 500 mg Chewable Tablet PO SCH (09:25)
[2018-05-23] MEDS: DULoxetine 30 MG CAP PO SCH (09:25)
[2018-05-23] MEDS: Tamsulosin HCl 0.4 MG CAP PO SCH (09:26)
[2018-05-23] MEDS: RILUZOLE 50 MG PO SCH ×2 (09:27→20:05)
[2018-05-23] MEDS: Apixaban 5 MG TAB PO SCH ×2 (09:27→20:06)
[2018-05-23] MEDS: NALTREXONE 3 MG PO SCH (09:27)
[2018-05-23] MEDS: Finasteride 5 MG TAB PO SCH (09:27)
[2018-05-23] MEDS: Vancomycin HCl 1.5 GM in Sodium Chloride 0.9% 250 ML 300 ML IVPB SCH ×2 (09:28→20:07)
[2018-05-23] MEDS: valACYclovir 500 MG TAB PO SCH ×2 (10:32→11:03)
[2018-05-23] MEDS: cefTRIAXone\\ROCEPHIN 2 GM in Sodium Chloride 0.9% 100 ML IVPB SCH (11:04)
--- NOTE | 2018-05-23 13:50 | HP ---
HISTORY OF PRESENT ILLNESS: Mr. Solano is a pleasant 67-year-old male, who has history of a left total knee arthroplasty performed by Dr. Thompson 10 years ago. The patient has ALS. The patient was noted last month to have some swelling and was diagnosed with deep vein thrombosis and did have calf pain and swelling and presented to my office with increasing pain and erythema. The patient had an aspiration of his knee, which showed Citrobacter koseri. The patient was followed up by Dr. Fernandez, and ciprofloxacin was stopped by Dr. Reyna, in charge of his ALS, because of weakness secondary to the antibiotic. The patient presented with increasing pain in his left calf and was sent for an ultrasound from my clinic, which showed continued fluid collection which could be abscess versus hematoma. Given this, the patient was sent for a CT-guided aspirate by Radiology with placement of a drain. This was discussed with family over the phone as well as in the office that given the patient's medical condition, I felt that putting into sleep would be very concerning and potentially lead to a tracheostomy and difficulty weaning him off vent. I understand all these risks. They understood all this and elected to proceed. PAST MEDICAL HISTORY: Includes ALS, left knee arthroplasty, right hip surgery in 1970s. ALLERGIES: HISTAMINE BLOCKERS. CURRENT MEDICATIONS: Amantadine, Eliquis, ascorbic acid, baclofen, duloxetine, finasteride, Rilutek, Lutein and Zeaxanthin, naltrexone, sirolimus, tamsulosin, tramadol, valacyclovir, vitamin E. SOCIAL HISTORY: No tobacco, drug, or alcohol use. . Full code. 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 REVIEW OF SYSTEMS: Noncontributory. PHYSICAL EXAMINATION: VITAL SIGNS: Today are 98.4, 59, 16, 95, 130/74. GENERAL: Alert and oriented male, in no acute distress. Resting comfortably in bed. EXTREMITIES: The patient's left leg shows erythema with a palpable fluid collection with pain in his left lateral gastrocnemius. The patient has weakness of dorsiflexion, plantar flexion, eversion, and inversion. He has weakness in quadriceps straight into the midline incision. He has small effusion. LABORATORY VALUES: White count of 7.1, ESR of 115, and a CRP of 4.97. The patient's aspirate shows cloudy turbid with 36,000 white cells, 98% neutrophils. His primary bacterial culture shows many white blood cells, no specific organisms. Cultures pending. IMPRESSION: Left calf abscess; septic arthritis, left knee; amyotrophic lateral sclerosis. ASSESSMENT AND PLAN: The patient had a PICC line placed yesterday, aspirated, with a drain left in place by Radiology. The patient will need medical management. Dr. Fernandez has been consulted to help with medical management of the patient's leg. If we can treat the patient conservatively, we will prefer this. I feel that operation may shorten the patient's life span. Also, I am concerned about extubating him. He understands all these risks and benefits and we followed inhouse. Job ID: [id number]
--- NOTE | 2018-05-23 15:24 | CON ---
DATE OF CONSULTATION: 05/23/2018 REASON FOR CONSULTATION: Abscess, posterior left knee; closed popliteal fossa, status post drainage and reaction to ciprofloxacin. HISTORY OF PRESENT ILLNESS: A 67-year-old, known to us from recent evaluation when he presented with a history of amyotrophic lateral sclerosis and a previous left TKR with inflammatory process secondary to Citrobacter species. Because of risks associated with potential respiratory failure and inability to extubate due to his ALS, it has been decided to manage without washout of the left knee and conservatively with oral ciprofloxacin. Because of concerns with recent exacerbation of the weakness in the upper extremities, the patient's neurologist has advised him to stop the quinolone, and now, he presented with an abscess. He has had a drain. The cultures are pending. The remainder aspect of his subjective history does not show any fever or chills. No respiratory symptoms. No chest pain. No abdominal pain or diarrhea. No genitourinary symptoms. MEDICAL HISTORY: Amyotrophic lateral sclerosis, left knee replacement, left TKR infection by Citrobacter species. FAMILY HISTORY: Cancer and dementia. SOCIAL HISTORY: Never smoker. . ALLERGIES: ANTIHISTAMINES. CURRENT MEDICATIONS: Baclofen, ceftriaxone, vancomycin, naltrexone, Rapamune, Flomax, Ultram, Valtrex. PHYSICAL EXAMINATION: VITAL SIGNS: Essentially normal. O2 saturations are 94% to 98%. SKIN: Shows the area in the posterior left popliteal foci with pigtail drain in place. Mild erythema surrounding the area. Peripheral IV access. No Anand catheter. No lymphadenopathy. Ocular movements conjugate. Oral cavity normal. NECK: Supple. LUNGS: Symmetric clear breath sounds. CARDIAC: S1 to S2 regular rate. ABDOMEN: Soft, not distended. He has diffuse weakness with atrophy of musculature throughout his appendicular structures. NEURO: He is awake, oriented, follows commands. LABORATORY DATA: White cell count 7.7, hemoglobin 12.4, platelets 457, and CRP 4.97. INR 1.0. Fluid aspirated from the abscess showed 36,000 wbc's with predominance of mature neutrophils. Microbiology of the fluid thus far; we have a Gram stain, which showed no organisms seen. ASSESSMENT AND DISCUSSION: Amyotrophic lateral sclerosis with infection of left total knee replacement site with Citrobacter species. The patient had to discontinue quinolone that he had been taken because of concerns with potential neuromuscular side effects in the face of his amyotrophic lateral sclerosis. At this point, we will switch him to Rocephin daily for few weeks and then transition to oral Bactrim. This area probably has developed from the intraarticular infection, trying to exit out in form of fistulous tract to the skin. Job ID: [id number]
[2018-05-24] MEDS: Vancomycin HCl 1.5 GM in Sodium Chloride 0.9% 250 ML 300 ML IVPB SCH ×2 (08:21→20:57)
[2018-05-24] MEDS: Ascorbic Acid 500 mg Chewable Tablet PO SCH (08:24)
[2018-05-24] MEDS: valACYclovir 500 MG TAB PO SCH (08:24)
[2018-05-24] MEDS: DULoxetine 30 MG CAP PO SCH (08:25)
[2018-05-24] MEDS: Apixaban 5 MG TAB PO SCH ×2 (08:25→20:57)
[2018-05-24] MEDS: Tamsulosin HCl 0.4 MG CAP PO SCH (08:25)
[2018-05-24] MEDS: Baclofen 10 MG TAB PO SCH ×3 (08:25→20:57)
[2018-05-24] MEDS: NALTREXONE 3 MG PO SCH (08:26)
[2018-05-24] MEDS: ZEAXANTHIN PO SCH (08:26)
[2018-05-24] MEDS: LUTEIN PO SCH (08:26)
[2018-05-24] MEDS: RILUZOLE 50 MG PO SCH ×2 (08:26→20:57)
[2018-05-24] MEDS: Finasteride 5 MG TAB PO SCH (08:27)
[2018-05-24 09:01] LABS: Hemoglobin 11.3 g/dL (14.0-18.0); Platelet Count 390 thou/uL (130-400)
[2018-05-24 09:16] LABS: Calc. Creatinine Clearance 107 mL/min (70-130); Estimated GFR-MDRD Greater than 90
[2018-05-24] MEDS: Amantadine HCl 100 mg Capsule PO SCH ×2 (10:45→20:57)
[2018-05-24] MEDS: cefTRIAXone\\ROCEPHIN 2 GM in Sodium Chloride 0.9% 100 ML IVPB SCH (10:45)
--- NOTE | 2018-05-24 12:54 | CON ---
DATE OF CONSULTATION: 05/24/2018 HISTORY OF PRESENT ILLNESS: Mr. Solano is a pleasant 67-year-old male, who presents with left knee pain associated with left knee arthroplasty and there has been abscess in his left calf. The patient had a drain for Radiology. Cultures were sent from the fluid and he is now pending final cultures. He has been seen by Dr. Fernandez, resting comfortably in bed. PHYSICAL EXAMINATION: VITAL SIGNS: Temperature 98.7, pulse 68, respiratory rate 16, O2 saturation 95, and blood pressure 138/79. GENERAL: No acute changes. EXTREMITIES: Left lower extremities, he says decreased in erythema, decreased swelling, decreased pain. Drain is still intact. NEUROLOGIC: His motor and sensory function are unchanged. LABORATORY DATA: Labs today platelet count 390. His creatinine is 0.64. The patient's micro at this point, still no growth of bacteria at 12 hours. IMPRESSION: Left septic total knee arthroplasty with abscess collection, left posterior calf. ASSESSMENT AND PLAN: The patient will leave the drain in place for a week. He will need home health with IV antibiotics and will be followed by Dr. Fernandez. Postop, he desires to place the patient on Rocephin and transition to Bactrim for suppression. The patient will be followed. After he will be discharged home, consult for home health. Job ID: [id number]
[2018-05-24 20:47] LABS: Vancomycin, Trough 18.7 ug/mL
[2018-05-25 07:54] VITALS: BP 165/80; TEMP 97.7
[2018-05-25] MEDS: Ascorbic Acid 500 mg Chewable Tablet PO SCH (09:08)
[2018-05-25] MEDS: Finasteride 5 MG TAB PO SCH (09:08)
[2018-05-25] MEDS: Tamsulosin HCl 0.4 MG CAP PO SCH (09:08)
[2018-05-25] MEDS: DULoxetine 30 MG CAP PO SCH (09:08)
[2018-05-25] MEDS: Baclofen 10 MG TAB PO SCH ×2 (09:08→15:44)
[2018-05-25] MEDS: Apixaban 5 MG TAB PO SCH (09:08)
[2018-05-25] MEDS: Amantadine HCl 100 mg Capsule PO SCH (09:10)
[2018-05-25] MEDS: RILUZOLE 50 MG PO SCH (09:11)
[2018-05-25] MEDS: LUTEIN PO SCH (09:11)
[2018-05-25] MEDS: NALTREXONE 3 MG PO SCH (09:11)
[2018-05-25] MEDS: ZEAXANTHIN PO SCH (09:11)
[2018-05-25] MEDS: valACYclovir 500 MG TAB PO SCH (09:22)
[2018-05-25] MEDS: cefTRIAXone\\ROCEPHIN 2 GM in Sodium Chloride 0.9% 100 ML IVPB SCH (09:22)
[2018-05-27] MEDS ORDERED: Apixaban 5 MG TAB PO SCH (09:00)
--- NOTE | 2018-05-28 10:49 | DIS ---
DATE OF ADMISSION: 05/22/2018 DATE OF DISCHARGE: 05/25/2018 CONSULTANTS: Jamil Fernandez MD. REASON FOR ADMISSION: Left calf abscess. BRIEF HOSPITAL COURSE: Mr. Solano is a pleasant 67-year-old male who has a history of a left total knee arthroplasty performed by Dr. Thompson 10 years ago. The patient has ALS. The patient was noted last month to have some swelling and was diagnosed with deep vein thrombosis and did have calf pain and swelling and presented to the office with increasing pain and erythema. The patient had aspiration of his knee, which showed Citrobacter koseri. The patient was followed up by Dr. Fernandez, and ciprofloxacin was stopped by Dr. Reyna in charge of his ALS. Because of weakness secondary to the antibiotic, patient presented with increasing pain in his left calf and was sent for an ultrasound from our clinic, which showed a continued fluid collection which could be abscess versus hematoma. Given this, the patient was sent for a CT-guided aspirate per Radiology with placement of a drain. Following this procedure, which resulted in purulent fluid from the fluid collection, drain was placed and the patient was admitted for IV antibiotics. A PICC line was placed and patient received IV Rocephin. He was subsequently discharged on this medication. DISCHARGE DISPOSITION: Home. DISCHARGE CONDITION: Stable. DISCHARGE INSTRUCTIONS: 1. The patient will follow up with Dr. Wright next week in the clinic. 2. He will leave the drain intact until followup. 3. He will also follow up with Dr. Fernandez. 4. He will follow up with IV infusion therapy for IV antibiotics through his PICC line. DISCHARGE MEDICATIONS: See Mar. Job ID: [id number]
== END 2018-05-25 18:41 | disposition home or self-care (01) | DRG 603 ==
LOC: ULT 12:09 → T4-A 16:51
PROVIDERS: ADMIT Orthopaedic Surgery; ATTEND Orthopaedic Surgery
PROC: 0Y9J30Z Drainage of Left Lower Leg with Drainage Device, Percutaneous Approach (ICD-10-PCS; principal; 2018-05-22)
PROC: 02HV33Z Insertion of Infusion Device into Superior Vena Cava, Percutaneous Approach (ICD-10-PCS; 2018-05-22)
PROC: B548ZZA Ultrasonography of Superior Vena Cava, Guidance (ICD-10-PCS; 2018-05-22)
DX: L02.416 Cutaneous abscess of left lower limb (principal); M00.9 Pyogenic arthritis, unspecified; G12.21 Amyotrophic lateral sclerosis; Z96.652 Presence of left artificial knee joint; Z86.718 Personal history of other venous thrombosis and embolism; Z79.899 Other long term (current) drug therapy; Z79.02 Long term (current) use of antithrombotics/antiplatelets; Z88.8 Allergy status to other drugs, medicaments and biological substances
CPT/HCPCS: 36415; 36569; 77002; 80202; 82565; 85014; 85018; 85025; 85049; 85060; 85610; 85652; 85730; 86140; 87070; 87205; 89051; 99213; C1729; C1751; G0463; J0696; J1644; J3370; J7050; J7520

== ENCOUNTER 2018-06-18 12:03 | Day surgery (SDC) | payer MEDICARE, OTHER ==
[2018-06-15 12:17] VITALS: BMI 20.9
[~2018-06-18 12:03] MED LIST: Iopamidol 370 76% 100 ML VIAL ONE; Prevnar 13-Val Conj/PF 0.5 ML SYRINGE IM ONE
[2018-06-18 13:04] VITALS: BP 152/88; TEMP 97.7
--- NOTE | 2018-06-18 15:24 | CT ---
CT GUIDED LEFT CALF ABSCESS DRAINAGE: 06/18/18 HISTORY: Patient with left calf abscess. Informed consent was obtained from the patient. The overlying skin was prepped and draped in the usua l sterile manner. A small amount of possible abscess was localized using CT guidance. The overlying s kin was prepped and draped in the usual sterile manner. 1% lidocaine solution was used to anesthetize the overlying soft tissues. A small dermatotomy was made. A 5 Moroccan Yueh needle was placed into the fluid collection. Necrotic fluid filled debris was aspirated. An 0.035 Amplatz wire was introduced. The track was dilated to 8 Moroccan. A 6 Moroccan all purpose drainage catheter was placed over the wire into the left calf fluid collection. Position was confirmed using CT. IMPRESSION: Successful CT guided left calf abscess drainage. POS: JESS[facility]
--- NOTE | 2018-06-18 15:43 | CT ---
CONTRAST ENHANCED CT IMAGES OF LEFT KNEE: HISTORY: Patient with a possible abscess. FINDINGS: Contrast-enhanced CT images of the upper calf are obtained. Images demonstrate an area of peripheral enhancement of the central area of hypodensity compatible wi th a small partially collapsed abscess. The collection appears to be draining to the skin surface. The peripheral enhancement results in a thin area of abscess at points measuring 3-4 mm in maximum th ickness. The area of abscess appears to extend into the gastrocnemius muscle and adjacent fascia. T he area of likely abscess is lateral to the neurovascular bundle. Flow is seen in the left distal lambert perficial femoral artery, left popliteal artery, and posttrifurcation arteries. POS: [facility]
== END 2018-06-18 15:35 | disposition home or self-care (01) ==
LOC: CT 12:03
PROVIDERS: ATTEND Orthopaedic Surgery
PROC: 0Y9J30Z Drainage of Left Lower Leg with Drainage Device, Percutaneous Approach (ICD-10-PCS; principal; 2018-06-18)
DX: L02.416 Cutaneous abscess of left lower limb (principal); M00.9 Pyogenic arthritis, unspecified; G12.21 Amyotrophic lateral sclerosis; Z79.01 Long term (current) use of anticoagulants; Z79.899 Other long term (current) drug therapy; Z88.1 Allergy status to other antibiotic agents; Z88.8 Allergy status to other drugs, medicaments and biological substances; Z96.652 Presence of left artificial knee joint; Z98.890 Other specified postprocedural states
CPT/HCPCS: 10160; 73701; 77002; 77012; 87070; 87205; C1729; Q9967

== ENCOUNTER 2019-01-29 09:09 | Observation (INO) | payer MEDICARE, OTHER ==
[2019-01-29] MEDS ORDERED: Ketamine 50 MG/ML (10ML VIAL) ONE (11:08)
[2019-01-29] MEDS ORDERED: Promethazine HCl 25 MG/ML VIAL IM PRN (11:41)
[2019-01-29] MEDS ORDERED: Promethazine HCl 25 MG/ML VIAL SLOW IVP PRN (11:41)
[2019-01-29] MEDS ORDERED: Ondansetron HCl/PF 4 MG/2 ML Vial IVP PRN (11:41)
[2019-01-29 13:04] VITALS: BMI 17.7
[2019-01-29] MEDS: Baclofen 10 MG TAB PO SCH (17:10)
--- NOTE | 2019-01-29 17:37 | OP ---
DATE OF PROCEDURE: 01/29/2019 PREPROCEDURE DIAGNOSIS: 1. Amyotrophic lateral sclerosis. 2. Oropharyngeal dysphagia secondary to amyotrophic lateral sclerosis. POSTPROCEDURE DIAGNOSIS: Successful placement of PEG tube by Ponsky pull technique. ANESTHESIA: TIVA. MEDICATIONS: Ancef 2 g IV. PROCEDURE: The patient was informed of the risks, benefits, and possible complications of endoscopy including perforation, reaction to medication, and aspiration, informed consent was obtained. The patient was brought to the endoscopy suite, where he was sedated in gradual fashion. Once he was comfortable, a bite block was placed inside his orifice. The endoscope was advanced to the esophagus, stomach, and second and third portion of the duodenum and slowly removed. There was good visualization of the mucosa. There were no mass lesions or AV malformations identified. The adequate PEG tube placement was identified by transillumination and finger indentation in anterior abdominal wall. PEG tube was placed by Ponsky pull technique. Second-look confirmed good placement. There was no bleeding. Good hemostasis. The scope was removed. The patient tolerated the procedure well. Job ID: [id number]
[2019-01-29] MEDS: Amantadine HCl 100 mg Capsule PO SCH (20:37)
[2019-01-29] MEDS ORDERED: RILUZOLE PO SCH (21:00)
[2019-01-29] MEDS ORDERED: Baclofen 10 MG TAB PO SCH (21:00)
[2019-01-30] MEDS: Baclofen 10 MG TAB PO SCH (08:44)
[2019-01-30] MEDS: Amantadine HCl 100 mg Capsule PO SCH (08:45)
[2019-01-30] MEDS ORDERED: [UNRECOGNIZED DRUG - MIXTURE] FS SCH (09:00)
[2019-01-30] MEDS ORDERED: NALTREXONE FS SCH (09:00)
[2019-01-30] MEDS ORDERED: Sulfameth/Trimethoprim DS 800-160mg TAB PO SCH (09:00)
[2019-01-30] MEDS ORDERED: Ascorbic Acid 500 mg Chewable Tablet PO SCH (09:00)
[2019-01-30] MEDS ORDERED: Tamsulosin HCl 0.4 MG CAP PO SCH (09:00)
[2019-01-30] MEDS ORDERED: DULoxetine 30 MG CAP PO SCH (09:00)
[2019-01-30] MEDS ORDERED: valACYclovir 500 MG TAB PO SCH (09:00)
[2019-01-30] MEDS ORDERED: Apixaban 5 MG TAB PO SCH (09:00)
[2019-01-30] MEDS ORDERED: Finasteride 5 MG TAB PO SCH (09:00)
[2019-01-30 11:43] VITALS: BP 118/68; TEMP 98.3
--- NOTE | 2019-01-31 07:52 | PRG ---
DATE OF SERVICE: 01/30/2019 SUBJECTIVE: Mr. Xiomara foss had some respiratory difficulty after his PEG tube yesterday, but did not become hypoxic, as the day goes on this will improve. He was started on some tube feeds. Family feels comfortable using the PEG tube and dietitian's recommendations for tube feeds. OBJECTIVE: VITAL SIGNS: Temperature 98, pulse 56 to 63, blood pressure 118/68. NEUROLOGIC: He has muscle wasting. He has slurred speech, but can communicate. Denies any pain. LUNGS: Clear. HEART: Regular rate and rhythm. ABDOMEN: Nontender. PEG tube site, bumper was loosened, clean and dry with no signs of infection. ASSESSMENT: 1. Amyotrophic lateral sclerosis with worsening swallowing difficulties. 2. Status post PEG tube placement . Discussed with the patient's family comfort feeds, recommended thickened liquids as they are going to do that. I did discuss risk of aspiration, although as the disease progresses, he will have risk of aspirating even with just saliva. It is recommended they discuss this further with his neurologist taking care of him and also recommended discussing the issues with Palliative Care as disease will progress further over time. I am not against comfort feeding, the situation of the patient so desires. He and his family do understand the risk of aspiration. PLAN: He will be discharged home to resume all his home medications including his blood thinners. I also indicated the family that I would be happy to see him back as needed. Otherwise, he will follow up with neurology staff who is managing his ALS. I provided with a prescription for tube feeds. The dietitian recommended 6 cans per day and I have recommended as well as the water boluses and titrate up as tolerated. I have recommended so if he has any nausea, we can stop the feed, so he does not throw up and aspirate. I have informed the insurance may or may not pay for his tube feeds and if not, Ensure Plus would work. Job ID: [id number]
== END 2019-01-30 16:23 | disposition home or self-care (01) ==
LOC: SDC 09:09 → T4-A 11:30
PROVIDERS: ADMIT Internal Medicine Gastroenterology; ATTEND Internal Medicine Gastroenterology
PROC: 0DH63UZ Insertion of Feeding Device into Stomach, Percutaneous Approach (ICD-10-PCS; principal; 2019-01-29)
DX: G12.21 Amyotrophic lateral sclerosis (principal); R63.4 Abnormal weight loss; Z68.1 Body mass index [BMI] 19.9 or less, adult; Z79.01 Long term (current) use of anticoagulants; Z79.899 Other long term (current) drug therapy; Z88.1 Allergy status to other antibiotic agents; Z88.8 Allergy status to other drugs, medicaments and biological substances
CPT/HCPCS: 43246; G0378 ×2; J0690

== ENCOUNTER 2019-05-01 05:03 | Observation (INO) | payer MEDICARE, OTHER ==
[2019-05-01 06:13] LABS: Hemoglobin 11.9 g/dL (14.0-18.0); Mean Corpuscular HGB CONC 32.8 g/dL (32.0-36.0); Mean Corpuscular Hemoglobin 35.7 pg (27.0-31.0); Mean Platelet Volume 8.4 fL (7.4-10.4); Platelet Count 190 thou/uL (130-400); RBC Distribution Width 11.1 % (11.5-14.5); Red Blood Cell (RBC) Count 3.32 mill/uL (4.70-6.10); White Blood Cell (WBC) Count 8.6 thou/uL (4.8-10.8)
[2019-05-01 06:29] LABS: #Lymphocytes 0.6 thou/uL (1.20-3.40); #Monocytes 0.6 thou/uL (0.11-0.59); #Neutrophils 7.4 thou/uL (1.40-6.50); %Basophils 0.2 % (0.0-1.0); %Eosinophils 0.3 % (0.0-10.0); %Monocytes 6.4 % (0.0-10.0); %Neutrophils 86.1 % (42.0-75.0); MDiff Complete? YES; Macrocytosis SLIGHT = 6-15 cells (100X) (0-5/hpf)
[2019-05-01 06:34] LABS: ALT (SGPT) 25 U/L (8-55); AST (SGOT) 28 U/L (5-34); Albumin 3.6 g/dL (3.4-4.8); Alkaline Phosphatase 66 U/L (40-110); Anion Gap 14 mmol/L (10-20); BUN (Urea Nitrogen) 24 mg/dL (8.4-25.7); Bilirubin, Total 0.8 mg/dL (0.2-1.2); Calc. Creatinine Clearance 0 mL/min (70-130); Calcium 8.9 mg/dL (7.8-10.44); Carbon Dioxide 27 mmol/L (23-31); Chloride 102 mmol/L (98-107); Estimated GFR-MDRD Greater than 90; Globulin 2.2 g/dL (2.4-3.5); Glucose 90 mg/dL (80-115); Potassium 4.3 mmol/L (3.5-5.1); Protein, Total 5.8 g/dL (5.8-8.1); Sodium 139 mmol/L (136-145)
[2019-05-01 06:46] LABS: Bilirubin Negative (Negative); Blood, Urine Negative (Negative); Clarity Turbid (Clear); Glucose, Urine (Dipstick) Normal (Negative); Leukocyte Negative Leu/uL (Negative); Mucous/LPF Rare LPF (<2+); Nitrite Negative (Negative); Protein, Urine (Dipstick) 200 mg/dL (Neg-Trace); RBC/HPF 0-3 HPF (0-3); Squamous Epithelial 0-3 HPF (0-3); WBC/HPF None Seen HPF (0-3)
[2019-05-01 06:47] LABS: Bacteria/HPF 1+ HPF (None Seen); Unclassified Crystals 2+ HPF (None Seen)
--- NOTE | 2019-05-01 07:37 | RAD ---
EXAM: Single view of the chest HISTORY: Syncope COMPARISON: None FINDINGS: Single view of the chest shows a normal sized cardiomediastinal silhouette. There is no meagan dence of consolidation, mass, or pleural effusion. The bones are unremarkable. IMPRESSION: No evidence of acute cardiopulmonary disease
[2019-05-01] MEDS ORDERED: Acetaminophen 325 MG TAB PO PRN (08:15)
[2019-05-01] MEDS ORDERED: Sodium Chloride 0.9% 1,000 ML IV SCH (08:15)
--- NOTE | 2019-05-01 08:22 | PDOC.HHP ---
Hospitalist HPI - History of Present Illness Syncope History of Present Illness: Mr. Solano is a 68 y/o gentleman with advanced ALS, hx of DVT, who presents to the ED after experiecing a fainting spell. Majority of history obtained from althought patient was able to nod in agreement/disagreemnt to sxs being presented. Early this AM, he had the urge to go to the bathroom, and upon transfer to the toilet he does not remember what happened. His states he fainted for a couple of minutes and she called the ambulance because he was difficult to arouse. When asking patient, he does not say he was straining but rather does not remember the event and just woke up to his trying to get his attention. He had a similar event, but remembers straining on the toilet when that prior event. This time he did not strain. There was no sweating or lightheadeness before the event. No seizure like activity noted. There was no bowel or urinary incontinence. Denies headache, cp, sob, fever, chills, or other sxs. Hospitalist ROS - Review of Systems Constitutional: denies: fever, chills, sweats, weakness, malaise, other Eyes: denies: pain, vision change, conjunctivae inflammation, eyelid inflammation, redness, other ENT: denies: ear pain, ear discharge, nose pain, nose discharge, nose congestion , mouth pain, mouth swelling, throat pain, throat swelling, other Respiratory: denies: cough, dry, shortness of breath, hemoptysis, SOB with excertion, pleuritic pain, sputum, wheezing, other Gastrointestinal: denies: nausea, vomiting, abdominal pain, diarrhea, constipation, melena, hematochezia, other Genitourinary: denies: dysuria, frequency, incontinence, hematuria, retention, other Musculoskeletal: denies: neck pain, shoulder pain, arm pain, back pain, hand pain, leg pain, foot pain, other Skin: denies: rash, lesions, khari, bruising, other Neurological: denies: weakness, numbness, incoordination, change in speech, confusion, seizures, other - Medication Medications: naltrexone oral MonMay 01, 2019 05:08 WHITNEY Ramos Lindsey TABLET : Strength - 50 mg : ORAL Patient Dose: 3 mg Oral once a day (in the morning). olimus MonMay 01, 2019 05:08 WHITNEY Ramos Lindsey TABLET : Strength - 1 mg : ORAL Patient Dose: See Notes.Unknown dosage. Vitamin C chewable tablet MonMay 01, 2019 05:08 WHITNEY Ramos Lindsey TABLET, CHEWABLE : Strength - 500 mg : ORAL Patient Dose: 1 tab(s) Oral 2 times a day. baclofen MonMay 01, 2019 05:08 WHITNEY Ramos Lindsey TABLET : Strength - 10 mg : ORAL Patient Dose: 1 tab(s) Oral every 6 hours. riluzole MonMay 01, 2019 05:08 WHITNEY Ramos Lindsey TABLET : Strength - 50 mg : ORAL Patient Dose: 1 tab(s) Oral 2 times a day. tamsulosin MonMay 01, 2019 05:08 WHITNEY Ramos Lindsey CAPSULE, EXT RELEASE 24 HR : Strength - 0.4 mg : ORAL Patient Dose: 1 tab(s) Oral once a day (after a meal). lutein-zeaxanthin 25 mg-5 mg capsule MonMay 01, 2019 05:08 WHITNEY Ramos Lindsey CAPSULE : Strength - 25 mg-5 mg : ORAL Patient Dose: 1 tab(s) Oral once a day (in the evening). Eliquis MonMay 01, 2019 05:08 WHITNEY Ramos Lindsey tablet : Strength - 5 mg : ORAL Patient Dose: 2 times a day. Valtrex MonMay 01, 2019 05:08 WHITNEY Ramos Lindsey tablet : Strength - 500 mg : ORAL Patient Dose: once a day. amantadine HCl oral MonMay 01, 2019 05:09 WHITNEY Ramos Lindsey CAPSULE : Strength - 100 mg : ORAL Patient Dose: See Notes.Unknown dosage. finasteride MonMay 01, 2019 05:09 WHITNEY Ramos Lindsey tablet : Strength - 5 mg : ORAL Patient Dose: once a day. oxybutynin chloride MonMay 01, 2019 05:09 WHITNEY Ramos Lindsey tablet : Strength - 5 mg : ORAL Patient Dose: once a day. DULoxetine MonMay 01, 2019 05:10 WHITNEY Ramos Lindsey capsule,delayed release(DR/EC) : Strength - 30 mg : ORAL Patient Dose: once a day. Synapsin MonMay 01, 2019 05:11 WHITNEY Ramos Lindsey powder : MISCELLANEOUS Patient Dose: Unknown. vitamin E 400 unit capsule MonMay 01, 2019 05:11 WHITNEY Ramos Lindsey capsule : Strength - 400 unit : ORAL Patient Dose: Unknown. Nuedexta MonMay 01, 2019 05:11 WHITNEY Ramos Lindsey capsule : Strength - 20 mg-10 mg : ORAL Patient Dose: once a day. Hospitalist History - Past Medical History Source: patient, family Cardiac: reports: no pertinent history Pulmonary: reports: no pertinent history [employer] TECH[employer]ICIAN: reports: Other (ALS) Gastrointestinal: reports: Other (PEG tube) Heme/Onc: reports: no pertinent history Hepatobiliary: reports: no pertinent history Psych: reports: no pertinent history Musculoskeletal: reports: no pertinent history Rheumatologic: reports: no pertinent history Infectious Disease: reports: no pertinent history ENT: reports: no pertinent history Renal/: reports: no pertinent history Endocrine: reports: no pertinent history Dermatology: reports: no pertinent history - Past Surgical History Past Surgical History: reports: Total Knee Replacement - Family History Family History: reports: hypertension - Social History Smoking Status: Never smoker Alcohol: reports: None Drugs: reports: none Living Situation: With Family Activity level: bed bound - Exam General Appearance: NAD, ill appearing General - other findings: Bedbound, cachetic Eye: PERRL ENT - other findings: Temporal wasting Neck: symmetric, no JVD, no thyromegaly Heart: RRR, no murmur, no gallops, no rubs Respiratory: no wheezes, no rales Respiratory - other findings: Chronic throat clearing, Gastrointestinal: soft, non-tender Gastrointestinal - other findings: PEG tube in place Extremities: no clubbing, no edema Skin: no rashes Neurological - other findings: ALS at baseline, severe muscular atrophy, hyperreflexia noted Musculoskeletal: diffuse muscle atrophy Psychiatric: normal affect, normal behavior Hospitalist Results - Labs Result Diagrams: 05/01/19 06:04 05/01/19 06:04 Lab results: WBC 8.6 thou/uL (4.8-10.8) 05/01/19 06:04 Hgb 11.9 g/dL (14.0-18.0) L 05/01/19 06:04 Hct 36.1 % (42.0-52.0) L 05/01/19 06:04 MCV 109.0 fL (78.0-98.0) H 05/01/19 06:04 Plt Count 190 thou/uL (130-400) 05/01/19 06:04 Neutrophils % 86.1 % (42.0-75.0) H 05/01/19 06:04 Sodium 139 mmol/L (136-145) 05/01/19 06:04 Potassium 4.3 mmol/L (3.5-5.1) 05/01/19 06:04 Chloride 102 mmol/L (98-107) 05/01/19 06:04 Carbon Dioxide 27 mmol/L (23-31) 05/01/19 06:04 BUN 24 mg/dL (8.4-25.7) 05/01/19 06:04 Creatinine 0.62 mg/dL (0.7-1.3) L 05/01/19 06:04 Glucose 90 mg/dL (80-115) 05/01/19 06:04 Calcium 8.9 mg/dL (7.8-10.44) 05/01/19 06:04 Total Bilirubin 0.8 mg/dL (0.2-1.2) 05/01/19 06:04 AST 28 U/L (5-34) 05/01/19 06:04 ALT 25 U/L (8-55) 05/01/19 06:04 Alkaline Phosphatase 66 U/L (40-110) 05/01/19 06:04 Troponin I 0.019 ng/mL (< 0.028) 05/01/19 06:04 B-Natriuretic Peptide 15.1 pg/mL (0-100) 05/01/19 06:04 Serum Total Protein 5.8 g/dL (5.8-8.1) 05/01/19 06:04 Albumin 3.6 g/dL (3.4-4.8) 05/01/19 06:04 Urine Ketones Negative mg/dL (Negative) 05/01/19 06:03 Urine Blood Negative (Negative) 05/01/19 06:03 Urine Nitrite Negative (Negative) 05/01/19 06:03 Ur Leukocyte Esterase Negative Jorge Alberto/uL (Negative) 05/01/19 06:03 Urine RBC 0-3 HPF (0-3) 05/01/19 06:03 Urine WBC None Seen HPF (0-3) 05/01/19 06:03 Ur Squamous Epith Cells 0-3 HPF (0-3) 05/01/19 06:03 Urine Bacteria 1+ HPF (None Seen) A 05/01/19 06:03 - EKG Interpretation EK lead EKG shows, sinus bradycardia, Rate (beats per minute): 52, Conduction normal, ST segments normal, T waves normal, [place] normal. - Radiology Interpretation Chest x-ray Status: report reviewed by me Hospitalist H&P A/P - Problem (1) Syncope Code(s): R55 - SYNCOPE AND COLLAPSE Status: Acute (2) Anemia Code(s): D64.9 - ANEMIA, UNSPECIFIED Status: Acute (3) DVT (deep venous thrombosis) Code(s): I82.409 - ACUTE EMBOLISM AND THOMBOS UNSP DEEP VN UNSP LOWER EXTREMITY Status: Acute Qualifiers: DVT location: lower extremity Affected thrombotic vein of extremity: femoral Chronicity: acute Laterality: left Qualified Code(s): I82.412 - Acute embolism and thrombosis of left femoral vein (4) ALS (amyotrophic lateral sclerosis) Code(s): G12.21 - AMYOTROPHIC LATERAL SCLEROSIS Status: Chronic - Plan Plan: Admit for obs tele Probably syncope vasovagal in nature, difficult to assess orthostats; however, pt states he was not straining when occurred Will obtain echocardiogram and continue telemetry monitoring to r/o any cardiac causes NS @ 50ml/hr x 1 bag Workup of macrocytic anemia including vitamin b12 and folate Chronic aspiration likely, speech to assess Continue tube feeding, consult for [facility] PT and OT to engage in passive range of motion exercises DVT Prophylaxis: will reume his home [place] for chronic DVT Code status: Full as discussed wit the pt ACP: is surrogate decision maker Disposition: Admit for obs tele. R/o cardiac syncope. DC probably tomorrow if negative studies.
--- NOTE | 2019-05-01 08:42 | CT ---
CT OF THE BRAIN WITHOUT CONTRAST: COMPARISON: None. HISTORY: ALS with syncope. TECHNIQUE: Multiple contiguous axial images were obtained in a CT of the brain without contrast. FINDINGS: The brain is normal in morphology and attenuation without focal lesions or confluent areas of infarct ion. There is no evidence of hydrocephalus, intracranial hemorrhage, or extraaxial fluid collection. The calvarium and overlying soft tissues are unremarkable. The visualized paranasal sinuses and mast oid air cells are well aerated. IMPRESSION: No evidence of acute intracranial abnormality. POS: [facility]
[2019-05-01 09:50] LABS: Troponin I Less than 0.010 ng/mL (< 0.028)
[2019-05-01 12:44] LABS: Troponin I Less than 0.010 ng/mL (< 0.028)
[2019-05-01 13:39] VITALS: BMI 13.6
[2019-05-02 05:02] LABS: #Eosinphils 0.1 thou/uL (0.0-0.7); #Lymphocytes 0.9 thou/uL (1.20-3.40); #Monocytes 0.6 thou/uL (0.11-0.59); #Neutrophils 4.5 thou/uL (1.40-6.50); %Basophils 0.1 % (0.0-1.0); %Eosinophils 1.3 % (0.0-10.0); %Lymphocytes 14.9 % (21.0-51.0); %Monocytes 10.3 % (0.0-10.0); %Neutrophils 73.3 % (42.0-75.0); Hemoglobin 11.2 g/dL (14.0-18.0); Mean Corpuscular HGB CONC 32.9 g/dL (32.0-36.0); Mean Corpuscular Hemoglobin 34.9 pg (27.0-31.0); Mean Platelet Volume 8.7 fL (7.4-10.4); Platelet Count 194 thou/uL (130-400); RBC Distribution Width 11.1 % (11.5-14.5); Red Blood Cell (RBC) Count 3.21 mill/uL (4.70-6.10); White Blood Cell (WBC) Count 6.1 thou/uL (4.8-10.8)
[2019-05-02 05:27] LABS: Anion Gap 11 mmol/L (10-20); BUN (Urea Nitrogen) 25 mg/dL (8.4-25.7); Calc. Creatinine Clearance 79 mL/min (70-130); Calcium 8.7 mg/dL (7.8-10.44); Carbon Dioxide 28 mmol/L (23-31); Chloride 103 mmol/L (98-107); Estimated GFR-MDRD Greater than 90; Glucose 80 mg/dL (80-115); Potassium 4.2 mmol/L (3.5-5.1); Sodium 138 mmol/L (136-145)
[2019-05-02] MEDS ORDERED: Sulfameth/Trimethoprim DS 800-160mg TAB PO SCH (14:00)
[2019-05-02] MEDS ORDERED: Oxybutynin 5 MG TAB PO SCH (14:00)
[2019-05-02] MEDS ORDERED: DULoxetine 30 MG CAP PO SCH (14:00)
[2019-05-02] MEDS ORDERED: Baclofen 10 MG TAB PO SCH (15:00)
[2019-05-02 19:51] VITALS: BP 140/74; TEMP 97.9
[2019-05-02] MEDS ORDERED: RILUZOLE 50 MG PO SCH (21:00)
[2019-05-02] MEDS ORDERED: Amantadine HCl 100 mg Capsule PO SCH (21:00)
[2019-05-02] MEDS ORDERED: Apixaban 5 MG TAB PO SCH (21:00)
[2019-05-03] MEDS ORDERED: Ascorbic Acid 500 mg Chewable Tablet PO SCH (09:00)
[2019-05-03] MEDS ORDERED: Vit A,C & E/Lutein/Minerals Tablet PO SCH (09:00)
[2019-05-03] MEDS ORDERED: valACYclovir 500 MG TAB PO SCH (09:00)
[2019-05-03] MEDS ORDERED: Tamsulosin HCl 0.4 MG CAP PO SCH (09:00)
[2019-05-03] MEDS ORDERED: Oxybutynin 5 MG TAB PO SCH (09:00)
[2019-05-03] MEDS ORDERED: Finasteride 5 MG TAB PO SCH (09:00)
[2019-05-03] MEDS ORDERED: NALTREXONE HCL PO SCH (09:00)
[2019-05-03] MEDS ORDERED: DULoxetine 30 MG CAP PO SCH (09:00)
[2019-05-03] MEDS ORDERED: Sulfameth/Trimethoprim DS 800-160mg TAB PO SCH (09:00)
== END 2019-05-02 19:45 | disposition home or self-care (01) ==
LOC: ERS 05:03 → ERHOLD 07:53 → 2NO 15:40
PROVIDERS: ADMIT Internal Medicine; ATTEND Internal Medicine
DX: R55 Syncope and collapse (principal); G12.21 Amyotrophic lateral sclerosis; D64.9 Anemia, unspecified; Z79.01 Long term (current) use of anticoagulants; Z79.899 Other long term (current) drug therapy; Z86.718 Personal history of other venous thrombosis and embolism; Z88.1 Allergy status to other antibiotic agents; Z88.8 Allergy status to other drugs, medicaments and biological substances; Z96.659 Presence of unspecified artificial knee joint
CPT/HCPCS: 70450; 71045; 80048; 80053; 82607; 82746; 83880; 84484 ×2; 85025 ×2; 93005; 93306; 96360; 96361 ×2; 97139; 99285; G0378 ×3; 36415; 81003; 81015

== ENCOUNTER 2021-02-10 03:56 | Emergency (ER) | payer MEDICARE, OTHER ==
[2021-02-10 05:19] LABS: ALT (SGPT) 57 U/L (8-55); AST (SGOT) 50 U/L (5-34); Albumin 4.3 g/dL (3.4-4.8); Alkaline Phosphatase 88 U/L (40-110); Anion Gap 14 mmol/L (10-20); BUN (Urea Nitrogen) 19 mg/dL (8.4-25.7); Bilirubin, Total 1.2 mg/dL (0.2-1.2); Calc. Creatinine Clearance 0 mL/min (70-130); Calcium 9.5 mg/dL (7.8-10.44); Carbon Dioxide 26 mmol/L (23-31); Chloride 103 mmol/L (98-107); Globulin 3.3 g/dL (2.4-3.5); Glucose 83 mg/dL (80-115); Potassium 4.4 mmol/L (3.5-5.1); Protein, Total 7.6 g/dL (5.8-8.1); Sodium 139 mmol/L (136-145)
[2021-02-10 05:49] LABS: #Eosinphils 0.1 thou/uL (0.0-0.7); #Lymphocytes 1.1 thou/uL (1.20-3.40); #Monocytes 0.6 thou/uL (0.11-0.59); #Neutrophils 5.1 thou/uL (1.40-6.50); %Basophils 0.2 % (0.0-1.0); %Lymphocytes 16.4 % (21.0-51.0); %Monocytes 8.4 % (0.0-10.0); %Neutrophils 74.1 % (42.0-75.0); Hemoglobin 14.2 g/dL (14.0-18.0); Mean Corpuscular HGB CONC 31.5 g/dL (32.0-36.0); Mean Corpuscular Hemoglobin 32.8 pg (27.0-31.0); Mean Platelet Volume 9.3 fL (7.4-10.4); Platelet Count 203 thou/uL (130-400); RBC Distribution Width 13.4 % (11.5-14.5); Red Blood Cell (RBC) Count 4.32 mill/uL (4.70-6.10); White Blood Cell (WBC) Count 6.9 thou/uL (4.8-10.8)
== END 2021-02-10 06:33 | disposition home or self-care (01) ==
LOC: ERS 03:56
DX: R06.02 Shortness of breath (principal); Z79.01 Long term (current) use of anticoagulants; Z79.899 Other long term (current) drug therapy
CPT/HCPCS: 36415; 71045; 80053; 83880; 85025

== ENCOUNTER 2021-10-19 21:58 | Inpatient (IN) | payer MEDICARE, BC ==
[2021-10-20] LABS: ALT (SGPT) 29 U/L (8-55); AST (SGOT) 30 U/L (5-34); Albumin 3.9 g/dL (3.4-4.8); Alkaline Phosphatase 77 U/L (40-110); Anion Gap 19 mmol/L (10-20); BUN (Urea Nitrogen) 25 mg/dL (8.4-25.7); Bilirubin, Total 1.7 mg/dL (0.2-1.2); Calc. Creatinine Clearance 0 mL/min (70-130); Calcium 8.2 mg/dL (7.8-10.44); Carbon Dioxide 20 mmol/L (23-31); Chloride 104 mmol/L (98-107); Globulin 2.9 g/dL (2.4-3.5); Glucose 124 mg/dL (80-115); Potassium 4.8 mmol/L (3.5-5.1); Protein, Total 6.8 g/dL (5.8-8.1); Sodium 138 mmol/L (136-145)
[2021-10-20] MEDS ORDERED: Cefepime 2 GM VIAL ONE (00:23)
[2021-10-20] MEDS ORDERED: Aspirin Chewable 81 MG TAB ONE (00:23)
[2021-10-20] MEDS ORDERED: Enoxaparin Sodium 80 MG/0.8 ML SYRINGE ONE (00:23)
[2021-10-20 00:25] LABS: SARS-CoV-2 NAA Rapid Test Not Detected (NotDetected)
[2021-10-20 00:29] LABS: CKMB 4.7 ng/mL (0-6.6)
[2021-10-20 00:41] LABS: Hemoglobin 11.5 g/dL (14.0-18.0); Mean Corpuscular HGB CONC 32.2 g/dL (32.0-36.0); Mean Platelet Volume 9.8 fL (7.4-10.4); Platelet Count 167 thou/uL (130-400); RBC Distribution Width 12.3 % (11.5-14.5); White Blood Cell (WBC) Count 10.6 thou/uL (4.8-10.8)
[2021-10-20] MEDS ORDERED: VANCOMYCIN 2 GRAM/500 ML BAG 2 GM in Premix Bag 1 BAG IVPB SCH (01:00)
[2021-10-20 01:08] LABS: #Eosinphils 0.1 thou/uL (0.0-0.7); #Lymphocytes 0.2 thou/uL (1.20-3.40); #Monocytes 0.6 thou/uL (0.11-0.59); #Neutrophils 9.7 thou/uL (1.40-6.50); %Basophils 0.3 % (0.0-1.0); %Eosinophils 0.6 % (0.0-10.0); %Lymphocytes 2.2 % (21.0-51.0); %Monocytes 5.5 % (0.0-10.0); %Neutrophils 91.4 % (42.0-75.0); MDiff Complete? YES; Macrocytosis SLIGHT = 6-15 cells (100X) (0-5/hpf); Platelet Morphology Comment Appears Adequate
[2021-10-20 01:20] LABS: Actual Bicarbonate (HCO3v) 23 mEq/L (22-28); Analyzer IN Cardio ER; Base Excess -3.4 mEq/L (-2.0 to +3.0); Calcium, Ionized (venous) 1.04 mmol/L (1.16-1.32); Chloride (VBG) 103 mmol/L (98-106); Hemoglobin (Hb) 12.4 g/dL (12.6-17.4); Potassium (VBG) 5.21 mmol/L (3.70-5.30); Sodium 135.5 mmol/L (133-146); pH (venous) 7.31 (7.32-7.43)
[2021-10-20 02:51] LABS: Bacteria/HPF None Seen HPF (None Seen); Bilirubin Negative (Negative); Blood, Urine 2+ (Negative); Clarity Clear (Clear); Glucose, Urine (Dipstick) Normal (Negative); Ketone, Urine 10 mg/dL (Negative); Leukocyte Negative Leu/uL (Negative); Nitrite Negative (Negative); Protein, Urine (Dipstick) 30 mg/dL (Neg-Trace); RBC/HPF Greater than 50 HPF (0-3); Squamous Epithelial 0-3 HPF (0-3); Urobilinogen Normal mg/dL (Less than 2); pH, Urine 6.5 (5.0-9.0)
[2021-10-20 02:54] LABS: Specific Gravity, Urine 1.052 (1.002-1.036)
[2021-10-20 03:40] LABS: Lactic Acid 3.7 mmol/L (0.5-2.2)
[2021-10-20 04:30] LABS: CKMB 7.7 ng/mL (0-6.6)
[2021-10-20] MEDS ORDERED: Ondansetron PF 4 MG/2 ML Vial IVP PRN (04:45)
[2021-10-20] MEDS ORDERED: Ondansetron ODT 4 MG TAB PO PRN (04:45)
[2021-10-20] MEDS ORDERED: Acetaminophen 650 MG Suppository PR PRN (04:45)
[2021-10-20] MEDS ORDERED: Sodium Chloride 0.9% 1,000 ML IV SCH (05:30)
[2021-10-20] MEDS ORDERED: hydrALAZINE 20 MG/ML VIAL SLOW IVP PRN (06:11)
[2021-10-20] MEDS ORDERED: Electrolyte Replacement Protocol 1 EACH FS SCH (06:15)
[2021-10-20 06:25] LABS: Troponin I 1.201 ng/mL (< 0.028)
[2021-10-20 06:29] LABS: Actual Bicarbonate (HCO3a) 21.7 mEq/L (22-28); Base Excess (BEa) -2.9 mEq/L (-2.0 to +3.0); CO2 Tension 36.3 mmHg (35.0-45.0); Calcium, Ionized (arterial) 1.11 mmol/L (1.12-1.30); Carboxyhemoglobin (COHb) 1.3 gm% (0.0-3.0); O2 Tension (PaO2), arterial 222.4 mmHg (> 80.0); Potassium - ABG Lab 3.76 mmol/L (3.70-5.30); pH, Arterial 7.39 (7.35-7.45)
[2021-10-20 06:41] LABS: ALV-art Gradient 17.425 mmHg (0-20); Puncture Site LBA
[2021-10-20 07:18] LABS: Lactic Acid 2.5 mmol/L (0.5-2.2)
[2021-10-20] MEDS: Piperacillin/Tazobactam 3.375 GM in Sodium Chloride 0.9% 100 ML IVPB SCH ×2 (07:23→15:41)
[2021-10-20] MEDS: Heparin 5,000 UNITS/ML VIAL SC SCH ×2 (07:23→07:39)
[2021-10-20 07:33] LABS: Troponin I 1.273 ng/mL (< 0.028)
[2021-10-20] MEDS ORDERED: ISOVUE-370 76%-LOCM 1 ML ONE (08:00)
[2021-10-20] MEDS: Azithromycin 500 MG in Sodium Chloride 0.9% 250 ML 250 ML IVPB SCH (08:00)
[2021-10-20 10:05] LABS: Legionella Urinary Ag Negative (Negative); Strep pneumo Urine Ag NEGATIVE (NEGATIVE)
[2021-10-20 11:47] LABS: Lactic Acid 1.6 mmol/L (0.5-2.2)
[2021-10-20] MEDS: VANCOMYCIN 1.25 GM/250 ML BAG 1.25 GM in Premix Bag 1 BAG IVPB SCH (12:46)
[2021-10-20] MEDS ORDERED: VANCOMYCIN 1.25 GM/250 ML BAG IVPB SCH (13:00)
[2021-10-20] MEDS: Baclofen 10 MG TAB PO SCH (21:29)
[2021-10-20] MEDS: Apixaban 5 MG TAB PO SCH (21:29)
[2021-10-21] MEDS: Piperacillin/Tazobactam 3.375 GM in Sodium Chloride 0.9% 100 ML IVPB SCH ×4 (00:22→23:22)
[2021-10-21] MEDS: VANCOMYCIN 1.25 GM/250 ML BAG 1.25 GM in Premix Bag 1 BAG IVPB SCH ×2 (01:14→14:03)
[2021-10-21] MEDS ORDERED: Propofol 1,000 MG/100 ML VIAL IV ONE (03:46)
[2021-10-21 04:01] LABS: Anion Gap 13 mmol/L (10-20); BUN (Urea Nitrogen) 18 mg/dL (8.4-25.7); Calc. Creatinine Clearance 176 mL/min (70-130); Calcium 8.2 mg/dL (7.8-10.44); Carbon Dioxide 24 mmol/L (23-31); Chloride 106 mmol/L (98-107); Glucose 176 mg/dL (80-115); Potassium 3.4 mmol/L (3.5-5.1); Sodium 140 mmol/L (136-145)
[2021-10-21 04:20] LABS: Actual Bicarbonate (HCO3a) 19.4 mEq/L (22-28); Analyzer IN Cardio OR; CO2 Tension 27.4 mmHg (35.0-45.0); Calcium, Ionized (arterial) 1.11 mmol/L (1.12-1.30); Carboxyhemoglobin (COHb) 2.6 gm% (0.0-3.0); O2 Tension (PaO2), arterial 134.6 mmHg (> 80.0); Potassium - ABG Lab 3.37 mmol/L (3.70-5.30); pH, Arterial 7.47 (7.35-7.45)
[2021-10-21 04:25] LABS: Hemoglobin (Hb) 5.3 g/dL (14.0-18.0)
[2021-10-21 04:42] LABS: #Lymphocytes 0.4 thou/uL (1.20-3.40); #Monocytes 0.9 thou/uL (0.11-0.59); #Neutrophils 8.8 thou/uL (1.40-6.50); %Basophils 0.2 % (0.0-1.0); %Eosinophils 0.3 % (0.0-10.0); %Monocytes 8.7 % (0.0-10.0); %Neutrophils 86.8 % (42.0-75.0); Hemoglobin 8.9 g/dL (14.0-18.0); Mean Corpuscular HGB CONC 31.7 g/dL (32.0-36.0); Mean Corpuscular Hemoglobin 34.4 pg (27.0-31.0); Mean Platelet Volume 9.7 fL (7.4-10.4); Platelet Count 176 thou/uL (130-400); RBC Distribution Width 12.3 % (11.5-14.5); Red Blood Cell (RBC) Count 2.59 mill/uL (4.70-6.10); White Blood Cell (WBC) Count 10.1 thou/uL (4.8-10.8)
[2021-10-21] MEDS ORDERED: fentaNYL Citrate/PF 2,000 MCG in Sodium Chloride 0.9% 60 ML IV SCH (06:30)
[2021-10-21] MEDS ORDERED: Propofol 1,000 MG/100 ML VIAL IV PRN (06:30)
[2021-10-21] MEDS ORDERED: fentaNYL Citrate-0.9 % NaCl/PF 100 ML IV SCH (06:30)
[2021-10-21] MEDS ORDERED: DISCONTINUE PREVIOUS NARCOTIC PAIN MEDICATIONS AND BENZODIAZEPINES FS SCH (06:30)
[2021-10-21] MEDS ORDERED: Fentanyl BOLUS 250 ML IVPB PRN (06:30)
[2021-10-21] MEDS ORDERED: Lorazepam 2 MG/ML VIAL SLOW IVP PRN (06:30)
[2021-10-21] MEDS ORDERED: Propofol BOLUS 1,000 MG/100 ML VIAL IV PRN (06:30)
[2021-10-21] MEDS ORDERED: Electrolyte Replacement Protocol 1 EACH FS ONE (07:03)
[2021-10-21] MEDS ORDERED: Electrolyte Replacement Protocol 1 EACH FS PRN (07:45)
[2021-10-21] MEDS: Azithromycin 500 MG in Sodium Chloride 0.9% 250 ML 250 ML IVPB SCH (08:37)
[2021-10-21] MEDS ORDERED: Vecuronium 10 MG VIAL IVP SCH (10:00)
[2021-10-21] MEDS ORDERED: Midazolam HCl 2 mg/2 ml Vial SLOW IVP SCH ×2 (10:00→10:30)
[2021-10-21] MEDS ORDERED: Xylocaine 1% w/ Epi 1:100K 10 ML VIAL ONE (10:27)
[2021-10-21] MEDS ORDERED: Fentanyl 100 MCG/2 ML VIAL ONE (10:28)
[2021-10-21] MEDS ORDERED: Fentanyl 100 MCG/2 ML VIAL SLOW IVP SCH (10:30)
[2021-10-21] MEDS ORDERED: Lidocaine 1% w/Epinephrine 1:100K 20 ML VIAL IJ SCH (10:45)
[2021-10-21] MEDS: Metoprolol Tartrate 25 MG TAB PO SCH ×2 (11:38→21:49)
[2021-10-21] MEDS: Apixaban 5 MG TAB PO SCH ×2 (11:38→21:49)
[2021-10-21] MEDS: Baclofen 10 MG TAB PO SCH ×2 (11:38→21:49)
[2021-10-21] MEDS: Terazosin HCl 5 MG CAP PO SCH (11:39)
[2021-10-21] MEDS: valACYclovir 500 MG TAB PO SCH (11:39)
[2021-10-21] MEDS: Scopolamine 1.5 mg/72 hour Patch TD SCH (11:45)
[2021-10-21 12:58] LABS: Vancomycin, Trough 8.3 ug/mL
[2021-10-21] MEDS: Potassium Chloride 20 MEQ in Premix Bag 1 BAG IVPB SCH ×3 (13:55→17:35)
[2021-10-21] MEDS ORDERED: Potassium Chloride 20 MEQ TAB PO SCH (15:45)
[2021-10-21] MEDS: Morphine 2 MG/ML VIAL SLOW IVP PRN ×2 (16:20→22:41)
[2021-10-21 21:58] LABS: Anion Gap 10 mmol/L (10-20); BUN (Urea Nitrogen) 16 mg/dL (8.4-25.7); Calc. Creatinine Clearance 177 mL/min (70-130); Calcium 7.9 mg/dL (7.8-10.44); Carbon Dioxide 25 mmol/L (23-31); Chloride 110 mmol/L (98-107); Glucose 70 mg/dL (80-115); Potassium 3.8 mmol/L (3.5-5.1); Sodium 141 mmol/L (136-145)
[2021-10-21] MEDS: VANCOMYCIN 1.75 GM/500 ML BAG 1.75 GM in Premix Bag 1 BAG IVPB SCH (23:22)
[2021-10-22] MEDS: Morphine 2 MG/ML VIAL SLOW IVP PRN ×2 (04:26→15:20)
[2021-10-22] MEDS: Azithromycin 500 MG in Sodium Chloride 0.9% 250 ML 250 ML IVPB SCH (06:13)
[2021-10-22 07:40] LABS: Base Excess (BEa) 0.8 mEq/L (-2.0 to +3.0); CO2 Tension 38.3 mmHg (35.0-45.0); Calcium, Ionized (arterial) 1.14 mmol/L (1.12-1.30); Carboxyhemoglobin (COHb) 2.5 gm% (0.0-3.0); Hemoglobin (Hb) 7.9 g/dL (14.0-18.0); O2 Tension (PaO2), arterial 66.2 mmHg (> 80.0); Potassium - ABG Lab 3.32 mmol/L (3.70-5.30); pH, Arterial 7.43 (7.35-7.45)
[2021-10-22 08:08] LABS: ALV-art Gradient 171.125 mmHg (0-20); Puncture Site RBA
[2021-10-22] MEDS: Terazosin HCl 5 MG CAP PO SCH (08:08)
[2021-10-22] MEDS: Metoprolol Tartrate 25 MG TAB PO SCH ×2 (08:08→20:52)
[2021-10-22] MEDS: Piperacillin/Tazobactam 3.375 GM in Sodium Chloride 0.9% 100 ML IVPB SCH ×2 (08:08→15:37)
[2021-10-22] MEDS: valACYclovir 500 MG TAB PO SCH (08:09)
[2021-10-22] MEDS: Baclofen 10 MG TAB PO SCH ×2 (08:09→20:52)
[2021-10-22] MEDS: Apixaban 5 MG TAB PO SCH ×2 (08:09→20:52)
[2021-10-22] MEDS ORDERED: NALTREXONE HCL PO SCH (09:15)
[2021-10-22] MEDS ORDERED: Furosemide 20 MG/2 ML VIAL SLOW IVP SCH (09:30)
[2021-10-22] MEDS ORDERED: Polyethylene Glycol 3350 17 GM Packet PER TUBE SCH (09:30)
[2021-10-22 09:43] LABS: #Eosinphils 0.1 thou/uL (0.0-0.7); #Lymphocytes 0.9 thou/uL (1.20-3.40); #Monocytes 1.2 thou/uL (0.11-0.59); #Neutrophils 7.1 thou/uL (1.40-6.50); %Basophils 0.1 % (0.0-1.0); %Eosinophils 1.5 % (0.0-10.0); %Lymphocytes 9.6 % (21.0-51.0); %Monocytes 12.3 % (0.0-10.0); %Neutrophils 76.5 % (42.0-75.0); Hemoglobin 7.7 g/dL (14.0-18.0); Mean Corpuscular HGB CONC 31.3 g/dL (32.0-36.0); Mean Corpuscular Hemoglobin 34.5 pg (27.0-31.0); Mean Platelet Volume 9.6 fL (7.4-10.4); Platelet Count 210 thou/uL (130-400); RBC Distribution Width 12.9 % (11.5-14.5); Red Blood Cell (RBC) Count 2.25 mill/uL (4.70-6.10); White Blood Cell (WBC) Count 9.3 thou/uL (4.8-10.8)
[2021-10-22 09:59] LABS: Anion Gap 11 mmol/L (10-20); BUN (Urea Nitrogen) 16 mg/dL (8.4-25.7); Calc. Creatinine Clearance 179 mL/min (70-130); Calcium 8.1 mg/dL (7.8-10.44); Carbon Dioxide 25 mmol/L (23-31); Chloride 110 mmol/L (98-107); Glucose 98 mg/dL (80-115); Potassium 3.6 mmol/L (3.5-5.1); Sodium 142 mmol/L (136-145)
[2021-10-22] MEDS: VANCOMYCIN 1.75 GM/500 ML BAG 1.75 GM in Premix Bag 1 BAG IVPB SCH (10:33)
[2021-10-23] MEDS: Morphine 2 MG/ML VIAL SLOW IVP PRN ×5 (00:32→21:32)
[2021-10-23] MEDS: Piperacillin/Tazobactam 3.375 GM in Sodium Chloride 0.9% 100 ML IVPB SCH ×3 (00:34→15:51)
[2021-10-23] MEDS: VANCOMYCIN 1.75 GM/500 ML BAG 1.75 GM in Premix Bag 1 BAG IVPB SCH ×2 (00:34→11:01)
[2021-10-23 05:45] LABS: #Eosinphils 0.1 thou/uL (0.0-0.7); #Lymphocytes 0.6 thou/uL (1.20-3.40); #Monocytes 0.6 thou/uL (0.11-0.59); #Neutrophils 6.5 thou/uL (1.40-6.50); %Basophils 0.2 % (0.0-1.0); %Eosinophils 1.8 % (0.0-10.0); %Lymphocytes 7.9 % (21.0-51.0); %Monocytes 8.1 % (0.0-10.0); Hemoglobin 6.9 g/dL (14.0-18.0); Mean Corpuscular HGB CONC 33.3 g/dL (32.0-36.0); Mean Corpuscular Hemoglobin 36.6 pg (27.0-31.0); Mean Platelet Volume 9.6 fL (7.4-10.4); Platelet Count 221 thou/uL (130-400); RBC Distribution Width 13.1 % (11.5-14.5); Red Blood Cell (RBC) Count 1.88 mill/uL (4.70-6.10); White Blood Cell (WBC) Count 7.9 thou/uL (4.8-10.8)
[2021-10-23 06:09] LABS: Anion Gap 12 mmol/L (10-20); BUN (Urea Nitrogen) 17 mg/dL (8.4-25.7); Calc. Creatinine Clearance 179 mL/min (70-130); Carbon Dioxide 29 mmol/L (23-31); Chloride 107 mmol/L (98-107); Glucose 150 mg/dL (80-115); Sodium 145 mmol/L (136-145)
[2021-10-23] MEDS: Azithromycin 500 MG in Sodium Chloride 0.9% 250 ML 250 ML IVPB SCH (06:30)
[2021-10-23 07:38] LABS: Actual Bicarbonate (HCO3a) 30.8 mEq/L (22-28); Base Excess (BEa) 7.1 mEq/L (-2.0 to +3.0); CO2 Tension 39.1 mmHg (35.0-45.0); Calcium, Ionized (arterial) 1.07 mmol/L (1.12-1.30); O2 Tension (PaO2), arterial 75.4 mmHg (> 80.0); Potassium - ABG Lab 2.89 mmol/L (3.70-5.30); pH, Arterial 7.51 (7.35-7.45)
[2021-10-23 07:49] LABS: ALV-art Gradient 160.925 mmHg (0-20); Puncture Site RBA
[2021-10-23] MEDS ORDERED: Potassium Chloride 20 MEQ TAB PO SCH (08:00)
[2021-10-23] MEDS: Terazosin HCl 5 MG CAP PO SCH (08:46)
[2021-10-23] MEDS: Polyethylene Glycol 3350 17 GM Packet PER TUBE SCH (08:46)
[2021-10-23] MEDS: Baclofen 10 MG TAB PO SCH ×2 (08:47→21:32)
[2021-10-23] MEDS: Apixaban 5 MG TAB PO SCH ×2 (08:47→21:33)
[2021-10-23] MEDS: Metoprolol Tartrate 25 MG TAB PO SCH ×2 (08:47→21:32)
[2021-10-23] MEDS: NALTREXONE HCL PO SCH (08:48)
[2021-10-23] MEDS: Lansoprazole 3 MG/ML ORAL SUSPENSION PER TUBE SCH (09:24)
[2021-10-23] MEDS: valACYclovir 500 MG TAB PO SCH (09:25)
[2021-10-23 10:54] LABS: Vancomycin, Trough 28.4 ug/mL
[2021-10-23] MEDS: VANCOMYCIN 1.25 GM/250 ML BAG 1.25 GM in Premix Bag 1 BAG IVPB SCH (16:22)
[2021-10-23 16:29] LABS: Base Excess 8.2 mEq/L (-2.0 to +3.0); Chloride (VBG) 108 mmol/L (98-106); Hemoglobin (Hb) 6.8 g/dL (12.6-17.4); Potassium (VBG) 3.39 mmol/L (3.70-5.30); Sodium 141.6 mmol/L (133-146); pH (venous) 7.43 (7.32-7.43)
[2021-10-23 16:30] LABS: Actual Bicarbonate (HCO3v) 33 mEq/L (22-28)
[2021-10-24] MEDS: Piperacillin/Tazobactam 3.375 GM in Sodium Chloride 0.9% 100 ML IVPB SCH ×3 (00:26→16:53)
[2021-10-24] MEDS: Morphine 2 MG/ML VIAL SLOW IVP PRN ×5 (00:52→19:16)
[2021-10-24 04:55] LABS: #Eosinphils 0.1 thou/uL (0.0-0.7); #Lymphocytes 0.5 thou/uL (1.20-3.40); #Monocytes 0.6 thou/uL (0.11-0.59); #Neutrophils 7.2 thou/uL (1.40-6.50); %Eosinophils 1.6 % (0.0-10.0); %Lymphocytes 5.5 % (21.0-51.0); %Monocytes 7.3 % (0.0-10.0); %Neutrophils 85.6 % (42.0-75.0); Hemoglobin 8.1 g/dL (14.0-18.0); Mean Corpuscular HGB CONC 33.3 g/dL (32.0-36.0); Mean Platelet Volume 9.3 fL (7.4-10.4); Platelet Count 253 thou/uL (130-400); White Blood Cell (WBC) Count 8.5 thou/uL (4.8-10.8)
[2021-10-24] MEDS: VANCOMYCIN 1.25 GM/250 ML BAG 1.25 GM in Premix Bag 1 BAG IVPB SCH (05:09)
[2021-10-24] MEDS: Azithromycin 500 MG in Sodium Chloride 0.9% 250 ML 250 ML IVPB SCH (05:10)
[2021-10-24 08:16] LABS: Actual Bicarbonate (HCO3a) 32.9 mEq/L (22-28); Base Excess (BEa) 7.5 mEq/L (-2.0 to +3.0); CO2 Tension 52.2 mmHg (35.0-45.0); Calcium, Ionized (arterial) 1.11 mmol/L (1.12-1.30); pH, Arterial 7.42 (7.35-7.45)
[2021-10-24 08:17] LABS: Puncture Site RBA
[2021-10-24] MEDS: Terazosin HCl 5 MG CAP PO SCH (08:35)
[2021-10-24] MEDS: Metoprolol Tartrate 25 MG TAB PO SCH ×2 (08:36→21:06)
[2021-10-24] MEDS: Scopolamine 1.5 mg/72 hour Patch TD SCH (08:37)
[2021-10-24] MEDS: Apixaban 5 MG TAB PO SCH ×2 (08:41→21:07)
[2021-10-24] MEDS: Baclofen 10 MG TAB PO SCH ×2 (08:41→21:06)
[2021-10-24] MEDS: Lansoprazole 3 MG/ML ORAL SUSPENSION PER TUBE SCH (09:10)
[2021-10-24] MEDS: NALTREXONE HCL PO SCH (09:13)
[2021-10-24] MEDS: Polyethylene Glycol 3350 17 GM Packet PER TUBE SCH (09:16)
[2021-10-24] MEDS: valACYclovir 500 MG TAB PO SCH (11:50)
[2021-10-24] MEDS ORDERED: Potassium Bicarbonate/Cit Ac 20 MEQ TAB PER TUBE SCH (12:30)
[2021-10-24] MEDS: tiZANidine HCl 4 MG TAB PER TUBE PRN ×2 (13:05→19:42)
[2021-10-24 16:27] LABS: #Eosinphils 0.1 thou/uL (0.0-0.7); #Lymphocytes 0.5 thou/uL (1.20-3.40); #Monocytes 0.7 thou/uL (0.11-0.59); #Neutrophils 7.5 thou/uL (1.40-6.50); %Basophils 0.1 % (0.0-1.0); %Lymphocytes 5.7 % (21.0-51.0); %Monocytes 7.9 % (0.0-10.0); %Neutrophils 85.3 % (42.0-75.0); Hemoglobin 8.5 g/dL (14.0-18.0); Mean Corpuscular HGB CONC 35.4 g/dL (32.0-36.0); Mean Corpuscular Hemoglobin 37.8 pg (27.0-31.0); Platelet Count 244 thou/uL (130-400); Red Blood Cell (RBC) Count 2.24 mill/uL (4.70-6.10); White Blood Cell (WBC) Count 8.8 thou/uL (4.8-10.8)
[2021-10-24 16:43] LABS: Vancomycin, Trough 21.1 ug/mL
[2021-10-24 16:46] LABS: ALT (SGPT) 20 U/L (8-55); AST (SGOT) 20 U/L (5-34); Albumin 2.7 g/dL (3.4-4.8); Alkaline Phosphatase 64 U/L (40-110); Anion Gap 13 mmol/L (10-20); BUN (Urea Nitrogen) 18 mg/dL (8.4-25.7); Bilirubin, Total 2.3 mg/dL (0.2-1.2); Calc. Creatinine Clearance 182 mL/min (70-130); Calcium 8.2 mg/dL (7.8-10.44); Carbon Dioxide 30 mmol/L (23-31); Chloride 106 mmol/L (98-107); Globulin 2.5 g/dL (2.4-3.5); Glucose 151 mg/dL (80-115); Potassium 4.4 mmol/L (3.5-5.1); Protein, Total 5.2 g/dL (5.8-8.1); Sodium 145 mmol/L (136-145)
[2021-10-24] MEDS: Vancomycin 1 GM in Premix Bag 1 BAG IVPB SCH (19:16)
[2021-10-25] MEDS: Morphine 2 MG/ML VIAL SLOW IVP PRN ×6 (00:21→22:21)
[2021-10-25] MEDS: Acetaminophen 325 MG TAB PO PRN ×2 (00:21→22:22)
[2021-10-25] MEDS: Piperacillin/Tazobactam 3.375 GM in Sodium Chloride 0.9% 100 ML IVPB SCH ×4 (00:22→23:05)
[2021-10-25] MEDS: tiZANidine HCl 4 MG TAB PER TUBE PRN ×3 (03:45→21:04)
[2021-10-25 04:39] LABS: ALT (SGPT) 17 U/L (8-55); AST (SGOT) 18 U/L (5-34); Albumin 2.5 g/dL (3.4-4.8); Alkaline Phosphatase 66 U/L (40-110); Anion Gap 10 mmol/L (10-20); BUN (Urea Nitrogen) 24 mg/dL (8.4-25.7); Calc. Creatinine Clearance 182 mL/min (70-130); Calcium 8.3 mg/dL (7.8-10.44); Carbon Dioxide 32 mmol/L (23-31); Chloride 106 mmol/L (98-107); Globulin 2.6 g/dL (2.4-3.5); Glucose 142 mg/dL (80-115); Potassium 4.2 mmol/L (3.5-5.1); Protein, Total 5.1 g/dL (5.8-8.1); Sodium 144 mmol/L (136-145)
[2021-10-25 04:58] LABS: #Eosinphils 0.2 thou/uL (0.0-0.7); #Lymphocytes 0.6 thou/uL (1.20-3.40); #Monocytes 0.5 thou/uL (0.11-0.59); #Neutrophils 6.5 thou/uL (1.40-6.50); %Basophils 0.3 % (0.0-1.0); %Eosinophils 2.8 % (0.0-10.0); %Lymphocytes 7.8 % (21.0-51.0); %Monocytes 6.8 % (0.0-10.0); %Neutrophils 82.3 % (42.0-75.0); Hemoglobin 7.4 g/dL (14.0-18.0); Mean Corpuscular HGB CONC 31.3 g/dL (32.0-36.0); Mean Corpuscular Hemoglobin 33.4 pg (27.0-31.0); Platelet Count 261 thou/uL (130-400); RBC Distribution Width 15.5 % (11.5-14.5); Red Blood Cell (RBC) Count 2.21 mill/uL (4.70-6.10); White Blood Cell (WBC) Count 7.9 thou/uL (4.8-10.8)
[2021-10-25] MEDS: Vancomycin 1 GM in Premix Bag 1 BAG IVPB SCH (05:49)
[2021-10-25 07:23] LABS: Actual Bicarbonate (HCO3a) 33.4 mEq/L (22-28); Base Excess (BEa) 8.5 mEq/L (-2.0 to +3.0); CO2 Tension 48.8 mmHg (35.0-45.0); Calcium, Ionized (arterial) 1.12 mmol/L (1.12-1.30); Potassium - ABG Lab 4.14 mmol/L (3.70-5.30); pH, Arterial 7.45 (7.35-7.45)
[2021-10-25 07:34] LABS: O2 Tension (PaO2), arterial 78.1 mmHg (> 80.0); Puncture Site RBA
[2021-10-25] MEDS: Metoprolol Tartrate 25 MG TAB PO SCH ×2 (08:58→21:04)
[2021-10-25] MEDS: Apixaban 5 MG TAB PO SCH ×2 (08:58→21:04)
[2021-10-25] MEDS: Baclofen 10 MG TAB PO SCH ×2 (08:58→21:04)
[2021-10-25] MEDS: Terazosin HCl 5 MG CAP PO SCH (08:58)
[2021-10-25] MEDS: valACYclovir 500 MG TAB PO SCH (08:59)
[2021-10-25] MEDS: NALTREXONE HCL PO SCH (08:59)
[2021-10-25] MEDS: Polyethylene Glycol 3350 17 GM Packet PER TUBE SCH (09:01)
[2021-10-25] MEDS: Lansoprazole 3 MG/ML ORAL SUSPENSION PER TUBE SCH (11:32)
[2021-10-26 04:26] LABS: #Eosinphils 0.2 thou/uL (0.0-0.7); #Lymphocytes 0.6 thou/uL (1.20-3.40); #Monocytes 0.7 thou/uL (0.11-0.59); #Neutrophils 7.1 thou/uL (1.40-6.50); %Basophils 0.3 % (0.0-1.0); %Eosinophils 2.5 % (0.0-10.0); %Lymphocytes 7.1 % (21.0-51.0); %Monocytes 7.5 % (0.0-10.0); %Neutrophils 82.6 % (42.0-75.0); Hemoglobin 7.3 g/dL (14.0-18.0); Mean Corpuscular HGB CONC 30.2 g/dL (32.0-36.0); Mean Corpuscular Hemoglobin 32.5 pg (27.0-31.0); Mean Platelet Volume 9.1 fL (7.4-10.4); Platelet Count 279 thou/uL (130-400); RBC Distribution Width 15.1 % (11.5-14.5); Red Blood Cell (RBC) Count 2.26 mill/uL (4.70-6.10); White Blood Cell (WBC) Count 8.6 thou/uL (4.8-10.8)
[2021-10-26 05:05] LABS: ALT (SGPT) 17 U/L (8-55); AST (SGOT) 21 U/L (5-34); Albumin 2.3 g/dL (3.4-4.8); Alkaline Phosphatase 76 U/L (40-110); Anion Gap 13 mmol/L (10-20); BUN (Urea Nitrogen) 26 mg/dL (8.4-25.7); Bilirubin, Total 1.7 mg/dL (0.2-1.2); Calc. Creatinine Clearance 187 mL/min (70-130); Calcium 7.6 mg/dL (7.8-10.44); Carbon Dioxide 29 mmol/L (23-31); Chloride 108 mmol/L (98-107); Globulin 2.5 g/dL (2.4-3.5); Glucose 118 mg/dL (80-115); Potassium 4.2 mmol/L (3.5-5.1); Protein, Total 4.8 g/dL (5.8-8.1); Sodium 146 mmol/L (136-145)
[2021-10-26] MEDS: Morphine 2 MG/ML VIAL SLOW IVP PRN ×5 (06:05→21:31)
[2021-10-26] MEDS: VANCOMYCIN 1.25 GM/250 ML BAG 1.25 GM in Premix Bag 1 BAG IVPB SCH (07:27)
[2021-10-26 07:55] LABS: Actual Bicarbonate (HCO3a) 32.7 mEq/L (22-28); Base Excess (BEa) 8.3 mEq/L (-2.0 to +3.0); CO2 Tension 45.3 mmHg (35.0-45.0); Calcium, Ionized (arterial) 1.13 mmol/L (1.12-1.30); Carboxyhemoglobin (COHb) 2.4 gm% (0.0-3.0); Hemoglobin (Hb) 8.1 g/dL (14.0-18.0); O2 Tension (PaO2), arterial 71.5 mmHg (> 80.0); Potassium - ABG Lab 4.36 mmol/L (3.70-5.30); pH, Arterial 7.48 (7.35-7.45)
[2021-10-26 07:58] LABS: ALV-art Gradient 121.425 mmHg (0-20); Puncture Site LBA
[2021-10-26] MEDS: Piperacillin/Tazobactam 3.375 GM in Sodium Chloride 0.9% 100 ML IVPB SCH ×3 (08:05→23:28)
[2021-10-26] MEDS: Apixaban 5 MG TAB PO SCH ×2 (08:05→20:42)
[2021-10-26] MEDS: Polyethylene Glycol 3350 17 GM Packet PER TUBE SCH (08:06)
[2021-10-26] MEDS: Metoprolol Tartrate 25 MG TAB PO SCH ×2 (08:06→20:41)
[2021-10-26] MEDS: Baclofen 10 MG TAB PO SCH ×2 (08:07→20:42)
[2021-10-26] MEDS: valACYclovir 500 MG TAB PO SCH (08:07)
[2021-10-26] MEDS: Terazosin HCl 5 MG CAP PO SCH (08:07)
[2021-10-26] MEDS: Lansoprazole 3 MG/ML ORAL SUSPENSION PER TUBE SCH (08:07)
[2021-10-26] MEDS: NALTREXONE HCL PO SCH (08:08)
[2021-10-27] MEDS: Morphine 2 MG/ML VIAL SLOW IVP PRN ×4 (00:39→21:31)
[2021-10-27] MEDS: hydrALAZINE 20 MG/ML VIAL SLOW IVP PRN (02:05)
[2021-10-27 05:08] LABS: Anion Gap 11 mmol/L (10-20); BUN (Urea Nitrogen) 22 mg/dL (8.4-25.7); Calc. Creatinine Clearance 187 mL/min (70-130); Calcium 8.5 mg/dL (7.8-10.44); Carbon Dioxide 31 mmol/L (23-31); Chloride 101 mmol/L (98-107); Estimated GFR 118; Glucose 121 mg/dL (80-115); Potassium 4.3 mmol/L (3.5-5.1); Sodium 139 mmol/L (136-145)
[2021-10-27 07:44] LABS: Actual Bicarbonate (HCO3a) 29.2 mEq/L (22-28); CO2 Tension 41.5 mmHg (35.0-45.0); Calcium, Ionized (arterial) 1.14 mmol/L (1.12-1.30); Carboxyhemoglobin (COHb) 1.7 gm% (0.0-3.0); Hemoglobin (Hb) 7.8 g/dL (14.0-18.0); O2 Tension (PaO2), arterial 86.3 mmHg (> 80.0); Potassium - ABG Lab 4.36 mmol/L (3.70-5.30); pH, Arterial 7.47 (7.35-7.45)
[2021-10-27 08:08] LABS: Puncture Site RBA
[2021-10-27 08:09] LABS: ALV-art Gradient 111.375 mmHg (0-20)
[2021-10-27] MEDS: Scopolamine 1.5 mg/72 hour Patch TD SCH (09:28)
[2021-10-27] MEDS: Terazosin HCl 5 MG CAP PO SCH (09:29)
[2021-10-27] MEDS: Baclofen 10 MG TAB PO SCH ×2 (09:29→21:05)
[2021-10-27] MEDS: Metoprolol Tartrate 25 MG TAB PO SCH ×2 (09:29→21:05)
[2021-10-27] MEDS: Apixaban 5 MG TAB PO SCH ×2 (09:29→21:05)
[2021-10-27] MEDS: Polyethylene Glycol 3350 17 GM Packet PER TUBE SCH (09:30)
[2021-10-27] MEDS: valACYclovir 500 MG TAB PO SCH (09:31)
[2021-10-27] MEDS: NALTREXONE HCL PO SCH (09:31)
[2021-10-27] MEDS: Piperacillin/Tazobactam 3.375 GM in Sodium Chloride 0.9% 100 ML IVPB SCH ×2 (09:40→16:26)
[2021-10-27] MEDS: Lansoprazole 3 MG/ML ORAL SUSPENSION PER TUBE SCH (09:40)
[2021-10-28] MEDS: Piperacillin/Tazobactam 3.375 GM in Sodium Chloride 0.9% 100 ML IVPB SCH ×2 (00:12→10:34)
[2021-10-28] MEDS: Morphine 2 MG/ML VIAL SLOW IVP PRN (05:07)
[2021-10-28] MEDS: Metoprolol Tartrate 25 MG TAB PO SCH ×2 (08:52→22:17)
[2021-10-28] MEDS: Terazosin HCl 5 MG CAP PO SCH (08:52)
[2021-10-28] MEDS: valACYclovir 500 MG TAB PO SCH (08:52)
[2021-10-28] MEDS: Apixaban 5 MG TAB PO SCH ×2 (08:52→22:17)
[2021-10-28] MEDS: NALTREXONE HCL PO SCH (08:53)
[2021-10-28] MEDS: Baclofen 10 MG TAB PO SCH ×2 (08:53→22:17)
[2021-10-28] MEDS: Polyethylene Glycol 3350 17 GM Packet PER TUBE SCH (08:53)
[2021-10-28] MEDS: Lansoprazole 3 MG/ML ORAL SUSPENSION PER TUBE SCH (08:53)
[2021-10-29] MEDS: Morphine 2 MG/ML VIAL SLOW IVP PRN (00:01)
[2021-10-29] MEDS: tiZANidine HCl 4 MG TAB PER TUBE PRN ×2 (00:20→17:22)
[2021-10-29] MEDS: Baclofen 10 MG TAB PO SCH ×2 (08:47→21:46)
[2021-10-29] MEDS: Polyethylene Glycol 3350 17 GM Packet PER TUBE SCH (08:47)
[2021-10-29] MEDS: Apixaban 5 MG TAB PO SCH ×2 (08:47→21:46)
[2021-10-29] MEDS: Terazosin HCl 5 MG CAP PO SCH (08:47)
[2021-10-29] MEDS: Lansoprazole 3 MG/ML ORAL SUSPENSION PER TUBE SCH (08:47)
[2021-10-29] MEDS: Metoprolol Tartrate 25 MG TAB PO SCH ×2 (08:48→21:46)
[2021-10-29] MEDS: valACYclovir 500 MG TAB PO SCH (08:48)
[2021-10-29] MEDS: NALTREXONE HCL PO SCH (08:49)
[2021-10-30] MEDS: Morphine 2 MG/ML VIAL SLOW IVP PRN ×2 (07:47→16:56)
[2021-10-30] MEDS: Scopolamine 1.5 mg/72 hour Patch TD SCH (08:02)
[2021-10-30] MEDS: Metoprolol Tartrate 25 MG TAB PO SCH ×2 (08:43→21:16)
[2021-10-30] MEDS: Terazosin HCl 5 MG CAP PO SCH (08:43)
[2021-10-30] MEDS: Polyethylene Glycol 3350 17 GM Packet PER TUBE SCH (08:45)
[2021-10-30] MEDS: Apixaban 5 MG TAB PO SCH ×2 (08:45→21:17)
[2021-10-30] MEDS: valACYclovir 500 MG TAB PO SCH (08:45)
[2021-10-30] MEDS: Baclofen 10 MG TAB PO SCH ×2 (08:45→21:17)
[2021-10-30] MEDS: NALTREXONE HCL PO SCH (08:47)
[2021-10-30] MEDS: Lansoprazole 3 MG/ML ORAL SUSPENSION PER TUBE SCH (09:06)
[2021-10-30] MEDS: tiZANidine HCl 4 MG TAB PER TUBE PRN (21:16)
[2021-10-31] MEDS: Morphine 2 MG/ML VIAL SLOW IVP PRN (09:02)
[2021-10-31] MEDS: Baclofen 10 MG TAB PO SCH ×2 (09:06→21:11)
[2021-10-31] MEDS: Lansoprazole 3 MG/ML ORAL SUSPENSION PER TUBE SCH (09:06)
[2021-10-31] MEDS: Apixaban 5 MG TAB PO SCH ×2 (09:06→21:11)
[2021-10-31] MEDS: Metoprolol Tartrate 25 MG TAB PO SCH ×2 (09:07→21:11)
[2021-10-31] MEDS: Polyethylene Glycol 3350 17 GM Packet PER TUBE SCH (09:07)
[2021-10-31] MEDS: valACYclovir 500 MG TAB PO SCH (09:08)
[2021-10-31] MEDS: NALTREXONE HCL PO SCH (09:08)
[2021-10-31] MEDS: Terazosin HCl 5 MG CAP PO SCH (09:08)
[2021-10-31] MEDS: Acetaminophen 325 MG TAB PO PRN (14:15)
[2021-10-31] MEDS ORDERED: Melatonin 3 MG TAB PER TUBE SCH (21:15)
[2021-11-01 08:29] LABS: #Eosinphils 0.1 thou/uL (0.0-0.7); #Lymphocytes 0.6 thou/uL (1.20-3.40); #Monocytes 0.7 thou/uL (0.11-0.59); #Neutrophils 8.1 thou/uL (1.40-6.50); %Basophils 0.3 % (0.0-1.0); %Monocytes 7.2 % (0.0-10.0); %Neutrophils 85.5 % (42.0-75.0); Hemoglobin 8.8 g/dL (14.0-18.0); Mean Corpuscular HGB CONC 30.3 g/dL (32.0-36.0); Mean Corpuscular Hemoglobin 32.1 pg (27.0-31.0); Mean Platelet Volume 7.7 fL (7.4-10.4); Platelet Count 540 thou/uL (130-400); RBC Distribution Width 16.8 % (11.5-14.5); Red Blood Cell (RBC) Count 2.74 mill/uL (4.70-6.10); White Blood Cell (WBC) Count 9.4 thou/uL (4.8-10.8)
[2021-11-01] MEDS: Terazosin HCl 5 MG CAP PO SCH (09:30)
[2021-11-01] MEDS: Baclofen 10 MG TAB PO SCH ×2 (09:30→21:24)
[2021-11-01] MEDS: Metoprolol Tartrate 25 MG TAB PO SCH ×2 (09:30→21:24)
[2021-11-01] MEDS: Apixaban 5 MG TAB PO SCH ×2 (09:30→21:24)
[2021-11-01] MEDS: valACYclovir 500 MG TAB PO SCH (09:31)
[2021-11-01] MEDS: Lansoprazole 3 MG/ML ORAL SUSPENSION PER TUBE SCH (09:31)
[2021-11-01] MEDS: NALTREXONE HCL PO SCH (09:32)
[2021-11-01] MEDS: Morphine 2 MG/ML VIAL SLOW IVP PRN ×3 (11:14→16:15)
[2021-11-01] MEDS: Polyethylene Glycol 3350 17 GM Packet PER TUBE SCH (11:21)
[2021-11-02] MEDS: Morphine 2 MG/ML VIAL SLOW IVP PRN ×5 (04:42→20:38)
[2021-11-02] MEDS: Polyethylene Glycol 3350 17 GM Packet PER TUBE SCH (08:07)
[2021-11-02] MEDS: Lansoprazole 3 MG/ML ORAL SUSPENSION PER TUBE SCH (08:07)
[2021-11-02] MEDS: Baclofen 10 MG TAB PO SCH ×2 (08:08→21:10)
[2021-11-02] MEDS: Metoprolol Tartrate 25 MG TAB PO SCH ×2 (08:08→21:10)
[2021-11-02] MEDS: Apixaban 5 MG TAB PO SCH ×2 (08:08→21:10)
[2021-11-02] MEDS: Scopolamine 1.5 mg/72 hour Patch TD SCH (08:08)
[2021-11-02] MEDS: Terazosin HCl 5 MG CAP PO SCH (08:08)
[2021-11-02] MEDS: NALTREXONE HCL PO SCH (09:12)
[2021-11-02] MEDS: valACYclovir 500 MG TAB PO SCH (09:22)
[2021-11-02] MEDS ORDERED: Polyethylene Glycol 3350 17 GM Packet PER TUBE PRN (11:50)
[2021-11-03] MEDS: Morphine 2 MG/ML VIAL SLOW IVP PRN ×4 (03:41→21:20)
[2021-11-03] MEDS: Terazosin HCl 5 MG CAP PO SCH (10:29)
[2021-11-03] MEDS: Metoprolol Tartrate 25 MG TAB PO SCH ×2 (10:30→20:31)
[2021-11-03] MEDS: valACYclovir 500 MG TAB PO SCH (10:30)
[2021-11-03] MEDS: Apixaban 5 MG TAB PO SCH ×2 (10:30→20:31)
[2021-11-03] MEDS: Lansoprazole 3 MG/ML ORAL SUSPENSION PER TUBE SCH (10:31)
[2021-11-03] MEDS: NALTREXONE HCL PO SCH (10:32)
[2021-11-03] MEDS: Baclofen 10 MG TAB PO SCH ×2 (10:34→20:31)
[2021-11-04] MEDS: Morphine 2 MG/ML VIAL SLOW IVP PRN ×4 (05:16→21:01)
[2021-11-04 06:21] LABS: Anion Gap 11 mmol/L (10-20); BUN (Urea Nitrogen) 17 mg/dL (8.4-25.7); Calc. Creatinine Clearance 191 mL/min (70-130); Calcium 8.9 mg/dL (7.8-10.44); Carbon Dioxide 31 mmol/L (23-31); Chloride 103 mmol/L (98-107); Estimated GFR 118; Glucose 131 mg/dL (80-115); Potassium 4.2 mmol/L (3.5-5.1); Sodium 141 mmol/L (136-145)
[2021-11-04] MEDS: Terazosin HCl 5 MG CAP PO SCH (09:31)
[2021-11-04] MEDS: Lansoprazole 3 MG/ML ORAL SUSPENSION PER TUBE SCH (09:31)
[2021-11-04] MEDS: Apixaban 5 MG TAB PO SCH ×2 (09:32→21:00)
[2021-11-04] MEDS: Baclofen 10 MG TAB PO SCH ×2 (09:32→21:01)
[2021-11-04] MEDS: Metoprolol Tartrate 25 MG TAB PO SCH ×2 (09:32→21:01)
[2021-11-04] MEDS: NALTREXONE HCL PO SCH (09:33)
[2021-11-04] MEDS: valACYclovir 500 MG TAB PO SCH (11:54)
[2021-11-05] MEDS: Morphine 2 MG/ML VIAL SLOW IVP PRN ×3 (06:20→20:04)
[2021-11-05] MEDS: Scopolamine 1.5 mg/72 hour Patch TD SCH (08:04)
[2021-11-05] MEDS: fentaNYL 50 mcg/hour Patch TD SCH (08:55)
[2021-11-05] MEDS: Terazosin HCl 5 MG CAP PO SCH (08:59)
[2021-11-05] MEDS: Lansoprazole 3 MG/ML ORAL SUSPENSION PER TUBE SCH (08:59)
[2021-11-05] MEDS: Baclofen 10 MG TAB PO SCH ×2 (09:00→20:03)
[2021-11-05] MEDS: Metoprolol Tartrate 25 MG TAB PO SCH ×2 (09:00→20:04)
[2021-11-05] MEDS: Apixaban 5 MG TAB PO SCH (09:00)
[2021-11-05] MEDS: NALTREXONE HCL PO SCH (09:01)
[2021-11-05] MEDS: valACYclovir 500 MG TAB PO SCH (11:08)
[2021-11-06] MEDS: Morphine 2 MG/ML VIAL SLOW IVP PRN ×3 (07:21→22:15)
[2021-11-06] MEDS: hydrALAZINE 20 MG/ML VIAL SLOW IVP PRN (07:21)
[2021-11-06] MEDS ORDERED: Budesonide 0.5 MG/2 ML NEB ONE (08:39)
[2021-11-06] MEDS: Lansoprazole 3 MG/ML ORAL SUSPENSION PER TUBE SCH (08:41)
[2021-11-06] MEDS: Baclofen 10 MG TAB PO SCH ×2 (08:41→21:49)
[2021-11-06] MEDS: valACYclovir 500 MG TAB PO SCH (08:41)
[2021-11-06] MEDS: Terazosin HCl 5 MG CAP PO SCH (08:41)
[2021-11-06] MEDS: Metoprolol Tartrate 25 MG TAB PO SCH ×2 (08:41→21:49)
[2021-11-07] MEDS: Lansoprazole 3 MG/ML ORAL SUSPENSION PER TUBE SCH (09:37)
[2021-11-07] MEDS: Metoprolol Tartrate 25 MG TAB PO SCH ×2 (09:37→21:00)
[2021-11-07] MEDS: Baclofen 10 MG TAB PO SCH ×2 (09:37→21:00)
[2021-11-07] MEDS: Terazosin HCl 5 MG CAP PO SCH (09:38)
[2021-11-07] MEDS: Guaifenesin DM 100-10/5 ML UDCUP PER TUBE SCH ×3 (09:38→20:59)
[2021-11-07] MEDS: valACYclovir 500 MG TAB PO SCH (09:38)
[2021-11-07] MEDS: Morphine 2 MG/ML VIAL SLOW IVP PRN ×3 (15:07→23:45)
[2021-11-08] MEDS: Guaifenesin DM 100-10/5 ML UDCUP PER TUBE SCH ×4 (04:09→21:01)
[2021-11-08] MEDS ORDERED: fentaNYL Citrate/PF 100 MCG/2 ML SYRINGE ONE (06:46)
[2021-11-08] MEDS ORDERED: Ondansetron PF 4 MG/2 ML Vial ONE (07:36)
[2021-11-08] MEDS ORDERED: PROPOFOL 200 MG/20 ML VIAL ONE (07:36)
[2021-11-08] MEDS ORDERED: Bupivacaine PF 0.5% 30 ML VIAL ONE (07:50)
[2021-11-08] MEDS ORDERED: Lidocaine 1% w/Epinephrine 1:100K 20 ML VIAL ONE (07:50)
[2021-11-08] MEDS ORDERED: Bacitracin Zinc Ointment 30 gm TUBE ONE (07:50)
[2021-11-08] MEDS: Metoprolol Tartrate 25 MG TAB PO SCH ×2 (09:32→20:52)
[2021-11-08] MEDS: Scopolamine 1.5 mg/72 hour Patch TD SCH (09:32)
[2021-11-08] MEDS: Terazosin HCl 5 MG CAP PO SCH (09:32)
[2021-11-08] MEDS: Baclofen 10 MG TAB PO SCH ×2 (09:32→20:52)
[2021-11-08] MEDS: fentaNYL 50 mcg/hour Patch TD SCH (09:33)
[2021-11-08] MEDS: valACYclovir 500 MG TAB PO SCH (09:34)
[2021-11-08] MEDS: Morphine 2 MG/ML VIAL SLOW IVP PRN ×2 (09:34→22:41)
[2021-11-08] MEDS: Lansoprazole 3 MG/ML ORAL SUSPENSION PER TUBE SCH (09:55)
[2021-11-08] MEDS ORDERED: Senokot S 8.6-50 MG TAB PER TUBE PRN (21:53)
[2021-11-09] MEDS: Guaifenesin DM 100-10/5 ML UDCUP PER TUBE SCH ×4 (04:20→21:40)
[2021-11-09] MEDS: Metoprolol Tartrate 25 MG TAB PO SCH ×2 (09:47→21:39)
[2021-11-09] MEDS: Lansoprazole 3 MG/ML ORAL SUSPENSION PER TUBE SCH (09:47)
[2021-11-09] MEDS: Baclofen 10 MG TAB PO SCH ×2 (09:47→21:39)
[2021-11-09] MEDS: Terazosin HCl 5 MG CAP PO SCH (09:49)
[2021-11-09] MEDS: valACYclovir 500 MG TAB PO SCH (09:50)
[2021-11-09] MEDS: Morphine 2 MG/ML VIAL SLOW IVP PRN ×3 (12:47→21:53)
[2021-11-09] MEDS: Apixaban 5 MG TAB PO SCH (21:39)
[2021-11-09] MEDS: Senokot S 8.6-50 MG TAB PER TUBE SCH (21:39)
[2021-11-10] MEDS: Guaifenesin DM 100-10/5 ML UDCUP PER TUBE SCH ×4 (03:45→21:36)
[2021-11-10] MEDS: Morphine 2 MG/ML VIAL SLOW IVP PRN ×2 (04:28→21:29)
[2021-11-10 06:53] LABS: Anion Gap 18 mmol/L (10-20); BUN (Urea Nitrogen) 30 mg/dL (8.4-25.7); Calc. Creatinine Clearance 175 mL/min (70-130); Calcium 9.4 mg/dL (7.8-10.44); Carbon Dioxide 23 mmol/L (23-31); Chloride 105 mmol/L (98-107); Estimated GFR 117; Glucose 164 mg/dL (80-115); Magnesium 2.1 mg/dL (1.6-2.6); Potassium 4.4 mmol/L (3.5-5.1); Sodium 142 mmol/L (136-145)
[2021-11-10 07:16] LABS: #Lymphocytes 0.5 thou/uL (1.20-3.40); #Monocytes 1.1 thou/uL (0.11-0.59); #Neutrophils 11.5 thou/uL (1.40-6.50); %Eosinophils 0.3 % (0.0-10.0); %Lymphocytes 3.9 % (21.0-51.0); %Monocytes 8.1 % (0.0-10.0); %Neutrophils 87.8 % (42.0-75.0); Hemoglobin 11.4 g/dL (14.0-18.0); Mean Corpuscular HGB CONC 29.9 g/dL (32.0-36.0); Mean Corpuscular Hemoglobin 32.2 pg (27.0-31.0); Mean Platelet Volume 8.4 fL (7.4-10.4); Platelet Count 442 thou/uL (130-400); RBC Distribution Width 16.6 % (11.5-14.5); Red Blood Cell (RBC) Count 3.52 mill/uL (4.70-6.10); White Blood Cell (WBC) Count 13.1 thou/uL (4.8-10.8)
[2021-11-10 07:40] LABS: MDiff Complete? YES; Macrocytosis SLIGHT = 6-15 cells (100X) (0-5/hpf); Platelet Morphology Comment Appears Increased; Polychromasia SLIGHT = 2-3 cells (100X) (0-2/hpf)
[2021-11-10] MEDS: Polyethylene Glycol 3350 17 GM Packet PER TUBE SCH (08:44)
[2021-11-10] MEDS: Lansoprazole 3 MG/ML ORAL SUSPENSION PER TUBE SCH (08:44)
[2021-11-10] MEDS: Metoprolol Tartrate 25 MG TAB PO SCH ×2 (08:45→21:29)
[2021-11-10] MEDS: Baclofen 10 MG TAB PO SCH ×2 (08:45→21:29)
[2021-11-10] MEDS: valACYclovir 500 MG TAB PO SCH (08:45)
[2021-11-10] MEDS: Senokot S 8.6-50 MG TAB PER TUBE SCH ×2 (08:45→20:48)
[2021-11-10] MEDS: Terazosin HCl 5 MG CAP PO SCH (08:45)
[2021-11-10] MEDS: Apixaban 5 MG TAB PO SCH ×2 (08:45→20:48)
[2021-11-10] MEDS: tiZANidine HCl 4 MG TAB PER TUBE PRN ×2 (08:46→21:29)
[2021-11-10] MEDS ORDERED: Sodium Chloride 0.9% 15 ML NEB ONE (10:33)
[2021-11-10 11:29] VITALS: BMI 23.0
[2021-11-10] MEDS ORDERED: Metoclopramide HCl 10 MG/2 ML VIAL IVP SCH (11:30)
[2021-11-10] MEDS ORDERED: Lactated Ringer's 1,000 ML IV SCH (13:00)
[2021-11-10] MEDS: hydrALAZINE 20 MG/ML VIAL SLOW IVP PRN (15:17)
[2021-11-10 15:18] VITALS: BP 182/97
[2021-11-10 20:56] LABS: #Lymphocytes 0.3 thou/uL (1.20-3.40); #Monocytes 0.7 thou/uL (0.11-0.59); #Neutrophils 12.7 thou/uL (1.40-6.50); %Eosinophils 0.1 % (0.0-10.0); %Lymphocytes 2.3 % (21.0-51.0); %Monocytes 4.8 % (0.0-10.0); %Neutrophils 92.9 % (42.0-75.0); Hemoglobin 11.1 g/dL (14.0-18.0); Mean Corpuscular HGB CONC 29.8 g/dL (32.0-36.0); Mean Platelet Volume 7.3 fL (7.4-10.4); Platelet Count 453 thou/uL (130-400); RBC Distribution Width 16.3 % (11.5-14.5); Red Blood Cell (RBC) Count 3.46 mill/uL (4.70-6.10); White Blood Cell (WBC) Count 13.7 thou/uL (4.8-10.8)
[2021-11-10 21:01] LABS: Lactic Acid 0.9 mmol/L (0.5-2.2)
[2021-11-10 21:04] LABS: Anion Gap 12 mmol/L (10-20); BUN (Urea Nitrogen) 35 mg/dL (8.4-25.7); Calc. Creatinine Clearance 179 mL/min (70-130); Calcium 9.5 mg/dL (7.8-10.44); Carbon Dioxide 32 mmol/L (23-31); Chloride 100 mmol/L (98-107); Estimated GFR 118; Glucose 133 mg/dL (80-115); Sodium 139 mmol/L (136-145)
[2021-11-10] MEDS: Lactated Ringer's 1,000 ML IV SCH (21:30)
[2021-11-10] MEDS ORDERED: Fleet Enema 133 ML BOT PR SCH (23:15)
[2021-11-11] MEDS: Guaifenesin DM 100-10/5 ML UDCUP PER TUBE SCH ×4 (06:05→22:41)
[2021-11-11] MEDS: Lactated Ringer's 1,000 ML IV SCH ×3 (06:43→22:41)
[2021-11-11 07:36] LABS: Phosphorus 3.1 mg/dL (2.3-4.7)
[2021-11-11 07:45] LABS: ALT (SGPT) 24 U/L (8-55); AST (SGOT) 23 U/L (5-34); Albumin 3.2 g/dL (3.4-4.8); Alkaline Phosphatase 139 U/L (40-110); Anion Gap 15 mmol/L (10-20); BUN (Urea Nitrogen) 32 mg/dL (8.4-25.7); Calc. Creatinine Clearance 179 mL/min (70-130); Calcium 9.1 mg/dL (7.8-10.44); Carbon Dioxide 28 mmol/L (23-31); Chloride 102 mmol/L (98-107); Estimated GFR 118; Globulin 2.8 g/dL (2.4-3.5); Glucose 118 mg/dL (80-115); Potassium 4.1 mmol/L (3.5-5.1); Sodium 141 mmol/L (136-145)
[2021-11-11 07:53] LABS: #Lymphocytes 0.7 thou/uL (1.20-3.40); #Monocytes 0.9 thou/uL (0.11-0.59); #Neutrophils 9.4 thou/uL (1.40-6.50); %Basophils 0.1 % (0.0-1.0); %Eosinophils 0.4 % (0.0-10.0); %Lymphocytes 6.1 % (21.0-51.0); %Monocytes 7.8 % (0.0-10.0); %Neutrophils 85.7 % (42.0-75.0); Hemoglobin 10.3 g/dL (14.0-18.0); Mean Corpuscular Hemoglobin 32.2 pg (27.0-31.0); Mean Platelet Volume 8.3 fL (7.4-10.4); Platelet Count 372 thou/uL (130-400); RBC Distribution Width 16.3 % (11.5-14.5); Red Blood Cell (RBC) Count 3.21 mill/uL (4.70-6.10); White Blood Cell (WBC) Count 10.9 thou/uL (4.8-10.8)
[2021-11-11 08:27] LABS: MDiff Complete? YES; Platelet Morphology Comment Appears Adequate; Polychromasia SLIGHT = 2-3 cells (100X) (0-2/hpf)
[2021-11-11] MEDS ORDERED: Magnesium 2 GM/50 ML(in water) 2 GM in Premix Bag 1 BAG IVPB SCH (09:00)
[2021-11-11] MEDS: Scopolamine 1.5 mg/72 hour Patch TD SCH (10:11)
[2021-11-11] MEDS: Apixaban 5 MG TAB PO SCH ×3 (10:13→20:26)
[2021-11-11] MEDS: fentaNYL 50 mcg/hour Patch TD SCH (10:14)
[2021-11-11] MEDS: Baclofen 10 MG TAB PO SCH ×2 (10:14→20:26)
[2021-11-11] MEDS: Lansoprazole 3 MG/ML ORAL SUSPENSION PER TUBE SCH (10:16)
[2021-11-11] MEDS: Metoprolol Tartrate 25 MG TAB PO SCH ×2 (10:18→20:26)
[2021-11-11] MEDS: Polyethylene Glycol 3350 17 GM Packet PER TUBE SCH ×2 (10:22→13:01)
[2021-11-11] MEDS: Senokot S 8.6-50 MG TAB PER TUBE SCH ×3 (10:23→20:26)
[2021-11-11] MEDS: valACYclovir 500 MG TAB PO SCH (10:24)
[2021-11-11] MEDS: Terazosin HCl 5 MG CAP PO SCH (10:24)
[2021-11-11] MEDS ORDERED: Albumin 25% 25 GM/100 ML BOT IVPB SCH (15:00)
[2021-11-11] MEDS: Albumin 25% 25 GM/100 ML BOT IVPB SCH ×2 (16:40→20:31)
[2021-11-11] MEDS: Bisacodyl 10 MG SUPP PR SCH (20:26)
[2021-11-12] MEDS: Guaifenesin DM 100-10/5 ML UDCUP PER TUBE SCH ×4 (04:28→22:46)
[2021-11-12] MEDS: Lansoprazole 3 MG/ML ORAL SUSPENSION PER TUBE SCH (09:05)
[2021-11-12] MEDS: Lactated Ringer's 1,000 ML IV SCH ×2 (09:27→22:48)
[2021-11-12] MEDS: Bisacodyl 10 MG SUPP PR SCH ×2 (09:29→21:34)
[2021-11-12] MEDS: Senokot S 8.6-50 MG TAB PER TUBE SCH ×2 (09:29→21:35)
[2021-11-12] MEDS: Terazosin HCl 5 MG CAP PO SCH (09:29)
[2021-11-12] MEDS: valACYclovir 500 MG TAB PO SCH (09:29)
[2021-11-12] MEDS: Baclofen 10 MG TAB PO SCH ×2 (09:29→21:30)
[2021-11-12] MEDS: Apixaban 5 MG TAB PO SCH ×2 (09:29→21:30)
[2021-11-12] MEDS: Metoprolol Tartrate 25 MG TAB PO SCH ×2 (09:29→21:30)
[2021-11-12] MEDS: Polyethylene Glycol 3350 17 GM Packet PER TUBE SCH (09:30)
[2021-11-12] MEDS: Albumin 25% 25 GM/100 ML BOT IVPB SCH (09:30)
[2021-11-12] MEDS: Acetaminophen 325 MG TAB PO PRN (21:31)
[2021-11-13] MEDS: Guaifenesin DM 100-10/5 ML UDCUP PER TUBE SCH ×4 (04:09→22:45)
[2021-11-13 04:37] LABS: Anion Gap 15 mmol/L (10-20); BUN (Urea Nitrogen) 20 mg/dL (8.4-25.7); Calc. Creatinine Clearance 185 mL/min (70-130); Calcium 8.6 mg/dL (7.8-10.44); Carbon Dioxide 27 mmol/L (23-31); Chloride 102 mmol/L (98-107); Estimated GFR 118; Glucose 83 mg/dL (80-115); Potassium 3.7 mmol/L (3.5-5.1); Sodium 140 mmol/L (136-145)
[2021-11-13 06:01] LABS: #Lymphocytes 0.9 thou/uL (1.20-3.40); #Monocytes 0.7 thou/uL (0.11-0.59); %Basophils 0.3 % (0.0-1.0); %Eosinophils 0.5 % (0.0-10.0); %Lymphocytes 15.6 % (21.0-51.0); %Monocytes 12.6 % (0.0-10.0); Hemoglobin 8.6 g/dL (14.0-18.0); Mean Corpuscular HGB CONC 31.1 g/dL (32.0-36.0); Mean Corpuscular Hemoglobin 33.1 pg (27.0-31.0); Mean Platelet Volume 8.4 fL (7.4-10.4); Platelet Count 277 thou/uL (130-400); RBC Distribution Width 15.7 % (11.5-14.5); Red Blood Cell (RBC) Count 2.61 mill/uL (4.70-6.10); White Blood Cell (WBC) Count 5.6 thou/uL (4.8-10.8)
[2021-11-13] MEDS: valACYclovir 500 MG TAB PO SCH (09:28)
[2021-11-13] MEDS: Apixaban 5 MG TAB PO SCH ×2 (09:28→21:20)
[2021-11-13] MEDS: Metoprolol Tartrate 25 MG TAB PO SCH ×2 (09:29→21:20)
[2021-11-13] MEDS: Baclofen 10 MG TAB PO SCH ×2 (09:29→21:20)
[2021-11-13] MEDS: Lansoprazole 3 MG/ML ORAL SUSPENSION PER TUBE SCH (09:35)
[2021-11-13] MEDS: Terazosin HCl 5 MG CAP PO SCH (09:35)
[2021-11-13] MEDS: Senokot S 8.6-50 MG TAB PER TUBE SCH ×2 (15:24→21:20)
[2021-11-13] MEDS: Polyethylene Glycol 3350 17 GM Packet PER TUBE SCH (15:40)
[2021-11-13] MEDS: Bisacodyl 10 MG SUPP PR SCH ×2 (15:41→21:20)
[2021-11-13] MEDS: Lactated Ringer's 1,000 ML IV SCH ×2 (16:00→19:48)
[2021-11-13] MEDS: Morphine 2 MG/ML VIAL SLOW IVP PRN ×2 (16:11→19:58)
[2021-11-14] MEDS: Morphine 2 MG/ML VIAL SLOW IVP PRN ×3 (01:42→15:54)
[2021-11-14] MEDS: Guaifenesin DM 100-10/5 ML UDCUP PER TUBE SCH ×2 (03:31→10:42)
[2021-11-14] MEDS: Lactated Ringer's 1,000 ML IV SCH ×2 (04:41→11:57)
[2021-11-14] MEDS: Lansoprazole 3 MG/ML ORAL SUSPENSION PER TUBE SCH (08:59)
[2021-11-14] MEDS: fentaNYL 50 mcg/hour Patch TD SCH (09:00)
[2021-11-14] MEDS: Baclofen 10 MG TAB PO SCH (09:12)
[2021-11-14] MEDS: Terazosin HCl 5 MG CAP PO SCH (09:12)
[2021-11-14] MEDS: valACYclovir 500 MG TAB PO SCH (09:12)
[2021-11-14] MEDS: Apixaban 5 MG TAB PO SCH (09:13)
[2021-11-14] MEDS: Scopolamine 1.5 mg/72 hour Patch TD SCH (09:14)
[2021-11-14] MEDS: Metoprolol Tartrate 25 MG TAB PO SCH (09:14)
[2021-11-14] MEDS: Bisacodyl 10 MG SUPP PR SCH (10:43)
[2021-11-14] MEDS: Polyethylene Glycol 3350 17 GM Packet PER TUBE SCH (10:43)
[2021-11-14] MEDS: Senokot S 8.6-50 MG TAB PER TUBE SCH (10:43)
[2021-11-14 13:01] VITALS: TEMP 98.5
== END 2021-11-14 16:20 | DRG 4 ==
LOC: ERS 21:58 → CCU 10-20 03:40
PROVIDERS: ADMIT Family Medicine; ATTEND Family Medicine
PROC: 3E03329 Introduction of Other Anti-infective into Peripheral Vein, Percutaneous Approach (ICD-10-PCS; 2021-10-20)
PROC: 0BH18EZ Insertion of Endotracheal Airway into Trachea, Via Natural or Artificial Opening Endoscopic (ICD-10-PCS; 2021-10-20)
PROC: 5A09457 Assistance with Respiratory Ventilation, 24-96 Consecutive Hours, Continuous Positive Airway Pressure (ICD-10-PCS; 2021-10-20)
PROC: 0B113F4 Bypass Trachea to Cutaneous with Tracheostomy Device, Percutaneous Approach (ICD-10-PCS; principal; 2021-10-21)
PROC: 5A1955Z Respiratory Ventilation, Greater than 96 Consecutive Hours (ICD-10-PCS; 2021-10-21)
PROC: 30233N1 Transfusion of Nonautologous Red Blood Cells into Peripheral Vein, Percutaneous Approach (ICD-10-PCS; 2021-10-23)
PROC: 0T7D8ZZ Dilation of Urethra, Via Natural or Artificial Opening Endoscopic (ICD-10-PCS; 2021-11-08)
DX: A41.89 Other specified sepsis (principal); J15.9 Unspecified bacterial pneumonia; J96.21 Acute and chronic respiratory failure with hypoxia; I21.A1 Myocardial infarction type 2; J69.0 Pneumonitis due to inhalation of food and vomit; S72.002A Fracture of unspecified part of neck of left femur, initial encounter for closed fracture; R65.21 Severe sepsis with septic shock; G82.50 Quadriplegia, unspecified; G12.21 Amyotrophic lateral sclerosis; J90 Pleural effusion, not elsewhere classified; Z99.11 Dependence on respirator [ventilator] status; Z20.822 Contact with and (suspected) exposure to COVID-19; I16.0 Hypertensive urgency; D63.8 Anemia in other chronic diseases classified elsewhere; W19.XXXA Unspecified fall, initial encounter; G89.29 Other chronic pain; R32 Unspecified urinary incontinence; N35.919 Unspecified urethral stricture, male, unspecified site; K59.00 Constipation, unspecified; M62.838 Other muscle spasm; K59.81 Ogilvie syndrome; R60.9 Edema, unspecified; R34 Anuria and oliguria; Z88.1 Allergy status to other antibiotic agents; Z88.8 Allergy status to other drugs, medicaments and biological substances; Z79.899 Other long term (current) drug therapy; Z79.01 Long term (current) use of anticoagulants; Z98.890 Other specified postprocedural states; Z86.718 Personal history of other venous thrombosis and embolism; Z74.01 Bed confinement status; Z99.89 Dependence on other enabling machines and devices; Y92.019 Unspecified place in single-family (private) house as the place of occurrence of the external cause; Z93.1 Gastrostomy status
CPT/HCPCS: 36415; 36430; 36600; 71045; 71275; 74018; 74019; 74176; 80048; 80053; 80202; 81003; 81015; 82553; 82805; 83605; 83735; 83880; 84100; 84145; 84484; 85025; 85379; 86850; 86900; 86901; 87040; 87070; 87086; 87205; 87449; 87899; 89220; 93005; 93306; 94002; 94003; 94640; 94660; 96365; 96366; 96367; 96372; J0360; J0456; J0692; J1644; J1650; J1940; J2250; J2270; J2405; J2543; J2704; J2765; J3010; J3370; J3475; J3480; J3490; J7050; J7120; J7620; P9016; P9047; Q9966; S0020; U0002; U0003; U0005